=== PATIENT | female | born 1940 | race Caucasian/White ===

== ENCOUNTER → 2017-01-13 | Outpatient (CLI) | payer OTHER ==
[~2017-01-13] MED LIST: ACET-1256 PO; AMOX875T PO; BIOT1CAP4 PO; CALCTAB7 PO; FEBU40TA PO; HYDR25TA4 PO; LORA10CA2 PO; MULT-845 PO; OMEGCAP2 PO; OXYC1TAB3 PO; TRAV0.00 OPB; ZOLP10TA PO
[2017-01-13 13:53] LABS: ESTIMATED AVERAGE GLUCOSE 143 mg/dl; HA1C FLAG Normal (Normal)
[2017-01-13 14:02] LABS: ALT/SGPT 58 U/L (12-78); BLOOD UREA NITROGEN 23 mg/dl (7-18); CALCIUM 9.7 mg/dl (8.5-10.1); CARBON DIOXIDE 30 mmol/L (21-32); CHLORIDE 105 mmol/L (98-107); CHOLESTEROL 187 mg/dl (0-200); CREATININE 0.82 mg/dl (0.60-1.20); GLUCOSE 108 mg/dl (70-99); POTASSIUM 3.6 mmol/L (3.5-5.1); SODIUM 143 mmol/L (136-145); TRIGLYCERIDES 112 mg/dl (0-150); VERY LOW DENSITY LIPOPROT CALC 22 mg/dl
[2017-01-13 14:06] LABS: ALB/GLOB RATIO 1.1 (0.9-2); ALKALINE PHOSPHATASE 50 U/L (45-117); AST/SGOT 24 U/L (15-37); CHOLESTEROL/HDL RATIO 3.8; HDL CHOLESTEROL 49 mg/dl; LDL CHOLESTEROL CALCULATED 116 mg/dl
== END | disposition home or self-care (01) ==
LOC: C.LABMFLN 07:47
PROVIDERS: ATTEND Family Medicine
DX: I10 Essential (primary) hypertension (principal); E11.9 Type 2 diabetes mellitus without complications; E78.5 Hyperlipidemia, unspecified; E55.9 Vitamin D deficiency, unspecified

== ENCOUNTER 2017-04-25 10:12 | Emergency (ER) | payer OTHER ==
[~2017-04-25] VITALS: Ht 154.9 cm; Wt 95.0 kg
[2017-04-25 10:17] VITALS: Ht 154.9 cm; Wt 95.0 kg
[2017-04-25] MEDS ORDERED: MoRPHine SULFATE 4 MG/ML 1 ML CARP\\VIAL IV STA (10:53)
[2017-04-25] MEDS ORDERED: ONDANSETRON INJ 2 MG/ML 2 ML VIAL IV STA (10:53)
[2017-04-25 11:22] LABS: BASO % 0.3 %; BASO ABS # 0.03 K/uL (0-0.2); COMPLETE YES; EOS % 1.3 %; HEMATOCRIT 41.6 % (37-47); IG% 0.4 %; LYMPH % 23.3 %; LYMPH ABS # 2.17 K/uL (1.2-3.4); MEAN CELL VOLUME 92.4 fL (80-100); MEAN CORPUSCULAR HEMOGLOBIN 32.2 pg (25-34); MEAN CORPUSCULAR HGB CONC 34.9 g/dl (32-36); MEAN PLATELET VOLUME 10.3 fL (7.4-10.4); MONO % 11.3 %; NEUT % 63.4 %; PLATELET COUNT 204 K/uL (130-400); WHITE BLOOD COUNT 9.33 K/uL (4.8-10.8)
[2017-04-25 11:23] LABS: URINE APPEARANCE CLEAR (CLEAR); URINE BILIRUBIN NEG (NEG); URINE COLOR YELLOW; URINE NITRITE NEG (NEG); URINE PH 6.5 (4.5-7.5); URINE SPECIFIC GRAVITY 1.017 (1.000-1.030); UROBILINOGEN NEG (NEG)
[2017-04-25 11:28] LABS: MANUAL MICROSCOPIC REQUIRED? NO; REVIEW REQ? NO
[2017-04-25 11:43] LABS: BLOOD UREA NITROGEN 15 mg/dl (7-18); BUN/CREATININE RATIO 17.5 (10-20); CARBON DIOXIDE 27 mmol/L (21-32); CHLORIDE 103 mmol/L (98-107); CREATININE 0.88 mg/dl (0.60-1.20); GLUCOSE 161 mg/dl (70-99); POTASSIUM 3.5 mmol/L (3.5-5.1); SODIUM 138 mmol/L (136-145)
[2017-04-25] MEDS ORDERED: FEBU40TA PO (11:43)
[2017-04-25] MEDS ORDERED: MULT-845 PO (11:43)
[2017-04-25] MEDS ORDERED: OMEGCAP2 PO (11:43)
[2017-04-25] MEDS ORDERED: HYDR25TA4 PO (11:43)
[2017-04-25] MEDS ORDERED: ACET-1256 PO (11:43)
[2017-04-25] MEDS ORDERED: BIOT1CAP4 PO (11:43)
[2017-04-25] MEDS ORDERED: ZOLP10TA PO (11:43)
[2017-04-25] MEDS ORDERED: CALCTAB7 PO (11:43)
[2017-04-25] MEDS ORDERED: TRAV0.00 OPB (11:43)
[2017-04-25] MEDS ORDERED: LORA10CA2 PO (11:43)
[2017-04-25 11:47] LABS: ALKALINE PHOSPHATASE 55 U/L (45-117); ALT/SGPT 42 U/L (12-78); AST/SGOT 17 U/L (15-37)
[2017-04-25] MEDS ORDERED: OPTIRAY 320 IV PRN (13:30)
--- NOTE | 2017-04-25 13:50 | DIAGNOSTIC IMAGING REPORT ---
HEAD CT NONCONTRAST CT DOSE: 537.48 mGy.cm HISTORY: Mental status change left frontal CLARK eval or bleed/mass TECHNIQUE: Multiaxial CT images of the head were performed without the use of intravenous contrast. Comparison: None. Findings: Opacified left maxillary sinus. The calvarium and skull base are intact. The ventricles and sulci are within normal limits. There is no mass, hematoma, midline shift, or acute infarct. Impression: Opacified left maxillary sinus. Otherwise negative CT of the brain Electronically signed by: Bret Fortune M.D. 04/25/2017 1:48 PM Dictated Date/Time: 04/25/2017 1:46 PM
--- NOTE | 2017-04-25 13:53 | DIAGNOSTIC IMAGING REPORT ---
ABDOMEN AND PELVIS CT WITH IV AND ORAL CONTRAST CT DOSE: 1103.74 mGy.cm HISTORY: Pain eval for diver tic TECHNIQUE: Multiaxial CT images of the abdomen and pelvis were performed following the use of intravenous and oral contrast. COMPARISON STUDY: None. FINDINGS: Pleuritic atelectasis left base. Lung bases otherwise are clear. Mild fatty infiltration of liver. Kidneys enhance uniformly. There are negative for hydronephrosis. Pancreas is unremarkable. Moderate wall thickening with pericolonic infiltrative change of the proximal to mid descending colon. No evidence for drainable abscess or collection. The appearance is consistent with acute diverticulitis. Small bowel pattern is nonobstructive. Cecum is unremarkable. The appendix appears to be normal. IMPRESSION: Acute diverticulitis of the proximal to mid descending colon. Moderate pericolonic infiltrative change. No evidence for abscess collection or obstruction. Electronically signed by: Bret Fortune M.D. 04/25/2017 1:51 PM Dictated Date/Time: 04/25/2017 1:48 PM
[2017-04-25] MEDS ORDERED: OXYC1TAB3 PO (14:25)
[2017-04-25] MEDS ORDERED: AMOX875T PO (14:25)
[2017-04-25] MEDS ORDERED: AMOXICILLIN/CLAVULANATE TAB 875 MG TAB PO ONE (14:30)
[2017-04-25 14:47] VITALS: BP 152/78; PULSE 72; TEMP 37.2; O2SAT 95
--- NOTE | 2017-04-25 16:41 | EMERGENCY ROOM VISIT NOTE ---
History Report prepared by Sawyer: Chely Blanchard Under the Supervision of: Dr. Fernando Sheldon M.D. First contact with patient: 10:44 Chief Complaint: ABDOMINAL PAIN Stated Complaint: ABD. PAIN, CLARK, BODY ACHES History of Present Illness The patient is a 76 year old female who presents to the Emergency Room with complaints of left lower quadrant abdominal pain beginning 3 days ago. She states that the pain intensity waxes and wanes. The patient says that she has had abdominal pain like this before but that it was not this bad and that it did not last this long. She reports that moving and eating exacerbates the pain. The patient also complains of a headache with fleeting pain on the left side of her head. She denies diarrhea, fevers, vomiting, rectal bleeding, chest pain, shortness of breath, urinary symptoms, and loss of vision. The patient reports that her last bowel movement was this morning and that she felt light- headed on the toilet and thought she was going to pass out. She also reports that she is diabetic and that her blood sugar was elevated this morning. Source of History: patient Onset: 3 days ago Position: abdomen (LLQ) Symptom Intensity: moderate Quality: other (unable to describe) Timing: waxes/wanes (the intensity waxes and wanes ) Modifying Factors (Worsening): eating, movement Associated Symptoms: + headache (severe, fleeting pain on the left side of her head), No fevers, No chest pain, No SOB, No vomiting, No diarrhea, No urinary symptoms, No weakness, No numbness Note: also denies: rectal bleeding and loss of vision Review of Systems See HPI for pertinent positives & negatives. A total of 10 systems reviewed and were otherwise negative. Past Medical & Surgical Medical Problems: (1) Asthma (2) Bronchitis (3) Diabetes (4) Skin problem Family History Cancer Diabetes mellitus Heart disease Social History Smoking Status: Never Smoker Alcohol Use: none Marital Status: Housing Status: lives with significant other Current/Historical Medications Scheduled Acetaminophen (Tylenol), 1,000 MG PO DAILY Amoxicillin & Pot Clavulanate (Augmentin 875-125 mg), 875 MG PO BID Biotin (Biotin), 1 TAB PO DAILY Calcium Carbonate-Vitamin D W/ (Caltrate 600 Plus), 1 TAB PO DAILY Febuxostat (Uloric), 1 TAB PO DAILY Hydrochlorothiazide (Hctz), 25 MG PO DAILY Multiple Vitamins W/ Minerals (Centrum Silver Adult 50+), 1 TAB PO DAILY Elmore-3 Fatty Acids (Fish Oil), 1 CAP PO DAILY Travoprost (Travatan Z), 1 DROPS OPB HS Zolpidem Tartrate (Ambien), 10 MG PO HS Scheduled PRN Loratadine (Claritin), 10 MG PO DAILY PRN for ALLERGIC REACTION Oxycodone Ir (Roxicodone Ir), 5 MG PO Q4H PRN for Pain Allergies Coded Allergies: Cefuroxime (Verified Allergy, Severe, THROAT CLOSES/TOUNGE SWELLS, 04/25/17 ) Cephalosporins (Verified Allergy, Unknown, 04/25/17) Lactose Intolerance (GI) (Unverified Adverse Reaction, Mild, GI SYMPTOMS, 04/25/17) Adhesives (Unverified Adverse Reaction, Unknown, SKIN IRRITATIONS, 04/25/17 ) Physical Exam Vital Signs Date Time Temp Pulse Resp B/P (MAP) Pulse Ox O2 Delivery O2 Flow Rate FiO2 04/25/17 14:47 37.2 72 18 152/78 95 04/25/17 14:37 72 18 152/78 95 Room Air 04/25/17 12:14 78 18 141/90 96 04/25/17 10:17 37.2 95 16 150/76 96 Room Air Physical Exam Constitutional: Vital signs reviewed. Eyes: Pupils are equal round reactive to light. Conjunctiva are noninjected. ENT: Pharynx is clear without erythema or exudate. Mucous membranes are moist. Neck supple without meningeal signs. Respiratory: Clear to auscultation bilaterally. Breath sounds are equal bilaterally. Cardiovascular: Regular rate and rhythm. No rubs or gallops. GI: Soft, nondistended with tenderness in the left lower quadrant. No guarding. Bowel sounds are present. Musculoskeletal: No peripheral edema. No lower extremity tenderness. No CVA tenderness. Integumentary: No cyanosis. Neurologic: The patient is awake and alert. Cranial nerves II-XII are intact. Motor is 5 out of 5 all extremities. Sensation is intact to light touch all extremities. Normal speech. No pronator drift. Psychiatric: Normal affect. Medical Decision & Procedures ER Provider Diagnostic Interpretation: CT results as stated below per my review and radiologist interpretation. HEAD CT NONCONTRAST CT DOSE: 537.48 mGy.cm HISTORY: Mental status change left frontal CLARK eval or bleed/mass TECHNIQUE: Multiaxial CT images of the head were performed without the use of intravenous contrast. Comparison: None. Findings: Opacified left maxillary sinus. The calvarium and skull base are intact. The ventricles and sulci are within normal limits. There is no mass, hematoma, midline shift, or acute infarct. Impression: Opacified left maxillary sinus. Otherwise negative CT of the brain Electronically signed by: Bret Fortune M.D. 04/25/2017 1:48 PM Dictated Date/Time: 04/25/2017 1:[address] results as stated below per my review and radiologist interpretation. ABDOMEN AND PELVIS CT WITH IV AND ORAL CONTRAST CT DOSE: 1103.74 mGy.cm HISTORY: Pain eval for diver tic TECHNIQUE: Multiaxial CT images of the abdomen and pelvis were performed following the use of intravenous and oral contrast. COMPARISON STUDY: None. FINDINGS: Pleuritic atelectasis left base. Lung bases otherwise are clear. Mild fatty infiltration of liver. Kidneys enhance uniformly. There are negative for hydronephrosis. Pancreas is unremarkable. Moderate wall thickening with pericolonic infiltrative change of the proximal to mid descending colon. No evidence for drainable abscess or collection. The appearance is consistent with acute diverticulitis. Small bowel pattern is nonobstructive. Cecum is unremarkable. The appendix appears to be normal. IMPRESSION: Acute diverticulitis of the proximal to mid descending colon. Moderate pericolonic infiltrative change. No evidence for abscess collection or obstruction. Laboratory Results 04/25/17 11:00 Red Blood Count 4.50, Mean Corpuscular Volume 92.4, Mean Corpuscular Hemoglobin 32.2, Mean Corpuscular Hemoglobin Concent 34.9, Mean Platelet Volume 10.3, Neutrophils (%) (Auto) 63.4, Lymphocytes (%) (Auto) 23.3, Monocytes (%) (Auto) 11.3, Eosinophils (%) (Auto) 1.3, Basophils (%) (Auto) 0.3, Neutrophils # (Auto ) 5.92, Lymphocytes # (Auto) 2.17, Monocytes # (Auto) 1.05, Eosinophils # (Auto ) 0.12, Basophils # (Auto) 0.03 04/25/17 11:00 Test 04/25/17 11:00 04/25/17 11:09 White Blood Count 9.33 K/uL (4.8-10.8) Red Blood Count 4.50 M/uL (4.2-5.4) Hemoglobin 14.5 g/dL (12.0-16.0) Hematocrit 41.6 % (37-47) Mean Corpuscular Volume 92.4 fL (80-100) Mean Corpuscular Hemoglobin 32.2 pg (25-34) Mean Corpuscular Hemoglobin Concent 34.9 g/dl (32-36) Platelet Count 204 K/uL (130-400) Mean Platelet Volume 10.3 fL (7.4-10.4) Neutrophils (%) (Auto) 63.4 % Lymphocytes (%) (Auto) 23.3 % Monocytes (%) (Auto) 11.3 % Eosinophils (%) (Auto) 1.3 % Basophils (%) (Auto) 0.3 % Neutrophils # (Auto) 5.92 K/uL (1.4-6.5) Lymphocytes # (Auto) 2.17 K/uL (1.2-3.4) Monocytes # (Auto) 1.05 K/uL (0.11-0.59) Eosinophils # (Auto) 0.12 K/uL (0-0.5) Basophils # (Auto) 0.03 K/uL (0-0.2) RDW Standard Deviation 45.7 fL (36.4-46.3) RDW Coefficient of Variation 13.5 % (11.5-14.5) Immature Granulocyte % (Auto) 0.4 % Immature Granulocyte # (Auto) 0.04 K/uL (0.00-0.02) Anion Gap 8.0 mmol/L (3-11) Est Creatinine Clear Calc Drug Dose 59.0 ml/min Estimated GFR () 75.0 Estimated GFR (Non- 64.7 BUN/Creatinine Ratio 17.5 (10-20) Calcium Level 10.0 mg/dl (8.5-10.1) Total Bilirubin 0.3 mg/dl (0.2-1) Direct Bilirubin < 0.1 mg/dl (0-0.2) Aspartate Amino Transf (AST/SGOT) 17 U/L (15-37) Alanine Aminotransferase (ALT/SGPT) 42 U/L (12-78) Alkaline Phosphatase 55 U/L (45-117) Total Protein 7.6 gm/dl (6.4-8.2) Albumin 3.5 gm/dl (3.4-5.0) Lipase 132 U/L (73-393) Urine Color YELLOW Urine Appearance CLEAR (CLEAR) Urine pH 6.5 (4.5-7.5) Urine Specific Kendrick 1.017 (1.000-1.030) Urine Protein NEG (NEG) Urine Glucose (UA) NEG (NEG) Urine Ketones NEG (NEG) Urine Occult Blood NEG (NEG) Urine Nitrite NEG (NEG) Urine Bilirubin NEG (NEG) Urine Urobilinogen NEG (NEG) Urine Leukocyte Esterase NEG (NEG) Laboratory results as reviewed by me. Medications Administered Medications (Trade) Dose Ordered Sig/Lubna Route Start Time Stop Time Status Last Admin Dose Admin Amoxicillin/ Clavulanate Potassium (Augmentin Tab) 875 mg NOW ONCE PO 04/25/17 14:30 04/25/17 14:31 DC 04/25/17 14:30 875 MG ED Course 1046: The patient was evaluated in room C6. A complete history and physical exam was performed. 1053: Ordered Ondansetron HCl 4 mg IV, Morphine Sulfate 4 mg IV. 1429: The patient says that she is not allergic to Penicillin and that she has had it before. 1430: Ordered Augmentin Tab 875 mg PO. 1445: Upon reevaluation, the patient appeared to have improvement of her symptoms. I discussed tonight's findings with her. She verbalized agreement of the treatment plan. She was discharged home. Medical Decision This is a 76-year-old female who presents with abdominal pain and headache. Differential diagnosis includes diverticulitis, abscess, perforation, kidney stone, UTI, intracranial mass, intracranial hemorrhage. Blood Pressure Screening: Patient was found to have an elevated blood pressure and was referred to their primary doctor for recheck and further treatment. Medication Reconciliation: I attest that I have personally reviewed the patient' s current medication list. I did evaluate the patient as noted above. She is having fleeting headaches to her left frontal region. She is neurologically intact. She denies any fever. She also complains of left lower quadrant pain and has tenderness in that region. She does have a prior history of diverticulitis. IV access was established. The patient was placed on a continuous traffic monitor specialist. I did order and personally review the patient's urinalysis as described above. I did order and review the patient's blood work as noted in the electronic medical record. Her white blood cell count is not elevated. I did order a CT of the head, abdomen and pelvis. I did review the images myself as well as the radiology report as described above. I did evaluate patient as described above. There is no evidence of acute intracranial abnormality. She does have left maxillary sinus disease. She denies having any sinus symptoms. She does have diverticulitis without abscess or perforation. I did reassess the patient. She is feeling better. I did discuss the test results with the patient. I did recommend staying on a liquid diet for the next few days and to follow closely with her doctor next week. She was given a prescription for Augmentin for 10 days and oxycodone for pain. She was discharged in good condition [place] Drug Monitoring Program Search Results: patient reviewed within database, no issues identified Impression Primary Impression: Acute diverticulitis Additional Impression: Acute headache Scribe Attestation The scribe's documentation has been prepared under my direct and personally reviewed by me in its entirety. I confirm that the note above accurately reflects all work, treatment, procedures, and medical decision making performed by me. Departure Information Dispostion Home / Self-Care Prescriptions Amoxicillin & Pot Clavulanate (Augmentin 875-125 mg) 1 Tab Tab 875 MG PO BID for 10 Days, #20 TAB Prov: Fernando Sheldon M.D. 04/25/17 Oxycodone Ir (Roxicodone Ir) 5 Mg Tab 5 MG PO Q4H Y for Pain, #10 TAB Prov: Fernando Sheldon M.D. 04/25/17 Referrals Pierce Javed M.D. (PCP) Forms HOME CARE DOCUMENTATION FORM, IMPORTANT VISIT INFORMATION Patient Instructions Diverticulitis Dc, Headache Pain, My [facility] Additional Instructions You have been examined and treated today on an emergency basis only. This is not a substitute for, or an effort to provide, complete comprehensive medical care. It is impossible to recognize and treat all injuries or illnesses in a single emergency department visit. It is therefore important that you follow up closely with your physician on Friday. Call as soon as possible for an appointment. Return for worsening symptoms or if you develop fever, vomiting, or any other concerning symptoms. Stay on a liquid diet for the next 3 days. Problem Qualifiers Additional Impression: Acute headache Headache type: unspecified Intractability: not intractable Qualified Codes : R51 - Headache
== END 2017-04-25 14:48 | disposition home or self-care (01) ==
LOC: C.EDB 10:13 → C.EDC 14:48
DX: K57.92 Diverticulitis of intestine, part unspecified, without perforation or abscess without bleeding (principal); R51 Headache; J45.909 Unspecified asthma, uncomplicated; E11.9 Type 2 diabetes mellitus without complications; Z83.3 Family history of diabetes mellitus; Z82.49 Family history of ischemic heart disease and other diseases of the circulatory system

== ENCOUNTER → 2017-05-15 | Outpatient (CLI) | payer OTHER ==
[~2017-05-15] MED LIST changes: -AMOX875T PO
== END | disposition home or self-care (01) ==
LOC: C.LABMFLN 10:31
PROVIDERS: ATTEND Family Medicine
DX: J02.9 Acute pharyngitis, unspecified (principal)

== ENCOUNTER → 2017-05-21 | Outpatient (CLI) | payer OTHER ==
[2017-05-21 13:26] LABS: BASO % 0.2 %; BASO ABS # 0.02 K/uL (0-0.2); COMPLETE YES; EOS % 0.3 %; HEMATOCRIT 41.1 % (37-47); IG% 0.5 %; LYMPH % 29.2 %; MEAN CELL VOLUME 91.3 fL (80-100); MEAN CORPUSCULAR HEMOGLOBIN 31.8 pg (25-34); MEAN CORPUSCULAR HGB CONC 34.8 g/dl (32-36); MEAN PLATELET VOLUME 10.2 fL (7.4-10.4); MONO % 10.8 %; PLATELET COUNT 267 K/uL (130-400); WHITE BLOOD COUNT 10.29 K/uL (4.8-10.8)
[2017-05-21 13:27] LABS: ESTIMATED AVERAGE GLUCOSE 154 mg/dl; HA1C FLAG Normal (Normal)
[2017-05-21 13:54] LABS: ALT/SGPT 40 U/L (12-78); BLOOD UREA NITROGEN 32 mg/dl (7-18); CARBON DIOXIDE 27 mmol/L (21-32); CHLORIDE 105 mmol/L (98-107); CHOLESTEROL 152 mg/dl (0-200); CREATININE 0.85 mg/dl (0.60-1.20); GLUCOSE 119 mg/dl (70-99); POTASSIUM 3.4 mmol/L (3.5-5.1); SODIUM 139 mmol/L (136-145)
[2017-05-21 13:56] LABS: ALB/GLOB RATIO 0.8 (0.9-2); ALKALINE PHOSPHATASE 58 U/L (45-117); AST/SGOT 16 U/L (15-37); CHOLESTEROL/HDL RATIO 2.9; HDL CHOLESTEROL 53 mg/dl; LDL CHOLESTEROL CALCULATED 83 mg/dl; TRIGLYCERIDES 82 mg/dl (0-150); VERY LOW DENSITY LIPOPROT CALC 16 mg/dl
== END | disposition home or self-care (01) ==
LOC: C.LABMFLN 08:34
PROVIDERS: ATTEND Family Medicine
DX: K57.32 Diverticulitis of large intestine without perforation or abscess without bleeding (principal); E11.9 Type 2 diabetes mellitus without complications; E78.5 Hyperlipidemia, unspecified; E55.9 Vitamin D deficiency, unspecified; E86.0 Dehydration

== ENCOUNTER → 2017-05-28 | Outpatient (CLI) | payer OTHER ==
[2017-05-28 13:23] LABS: RATIO 7.1 mcg/mg (0-30.0)
== END | disposition home or self-care (01) ==
LOC: C.LABMFLN 11:25
PROVIDERS: ATTEND Family Medicine
DX: E11.9 Type 2 diabetes mellitus without complications (principal)

== ENCOUNTER → 2017-06-03 | Outpatient (CLI) | payer OTHER | END | disposition home or self-care (01) | LOC: C.LABMFLN 13:32 | PROVIDERS: ATTEND Family Medicine | DX: E87.6 Hypokalemia (principal); M31.6 Other giant cell arteritis ==

== ENCOUNTER → 2017-09-22 | Outpatient (CLI) | payer OTHER ==
[2017-09-22 13:49] LABS: ALT/SGPT 59 U/L (12-78); AST/SGOT 33 U/L (15-37); BLOOD UREA NITROGEN 25 mg/dl (7-18); BUN/CREATININE RATIO 26.3 (10-20); CALCIUM 9.4 mg/dl (8.5-10.1); CARBON DIOXIDE 25 mmol/L (21-32); CHLORIDE 103 mmol/L (98-107); CREATININE 0.96 mg/dl (0.60-1.20); GLUCOSE 116 mg/dl (70-99); POTASSIUM 3.8 mmol/L (3.5-5.1); SODIUM 137 mmol/L (136-145)
[2017-09-22 13:52] LABS: ALB/GLOB RATIO 0.9 (0.9-2); ALKALINE PHOSPHATASE 55 U/L (45-117); CHOLESTEROL 179 mg/dl (0-200); CHOLESTEROL/HDL RATIO 3.4; HDL CHOLESTEROL 52 mg/dl; LDL CHOLESTEROL CALCULATED 103 mg/dl; TRIGLYCERIDES 119 mg/dl (0-150); VERY LOW DENSITY LIPOPROT CALC 24 mg/dl
[2017-09-22 14:02] LABS: ESTIMATED AVERAGE GLUCOSE 128 mg/dl; HA1C FLAG Normal (Normal)
[2017-09-22 18:34] LABS: RATIO 6.3 mcg/mg (0-30.0)
== END | disposition home or self-care (01) ==
LOC: C.LABMFLN 07:54
PROVIDERS: ATTEND Family Medicine
DX: E11.9 Type 2 diabetes mellitus without complications (principal); E87.6 Hypokalemia; I10 Essential (primary) hypertension; R51 Headache; E78.5 Hyperlipidemia, unspecified; E55.9 Vitamin D deficiency, unspecified

== ENCOUNTER → 2017-09-30 | Outpatient (CLI) | payer OTHER ==
[2017-09-30 18:43] LABS: LYME DISEASE AB IGG NEG (NEG); LYME DISEASE AB IGM NEG (NEG)
== END | disposition home or self-care (01) ==
LOC: C.LABMFLN 13:32
PROVIDERS: ATTEND Family Medicine
DX: R20.0 Anesthesia of skin (principal)

== ENCOUNTER → 2017-10-07 | Outpatient (CLI) | payer OTHER ==
--- NOTE | 2017-10-07 15:11 | MAMMOGRAPHY REPORT ---
UNILATERAL RIGHT DIGITAL SCREENING MAMMOGRAM TOMOSYNTHESIS WITH CAD: 10/07/2017 CLINICAL HISTORY: Asymptomatic. Personal history of breast cancer. TECHNIQUE: Right breast tomosynthesis in addition to standard 2D mammography was performed. Current moises singleton was also evaluated with a Computer Aided Detection (CAD) system. COMPARISON: Comparison is made to exams dated: 09/30/2016 mammogram, 09/25/2015 mammogram, 09/19/2014 mammogram, 08/26/2014 mammogram, 09/19/2014 ultrasound, and 08/25/2013 mammogram - [facility]. BREAST COMPOSITION: There are scattered areas of fibroglandular density in the right breast. FINDINGS: The right MLO views are suboptimal due to the inability of the patient to adequately positi on for the views despite 3 attempts. Within this limitation, there are scattered benign-appearing co arse calcifications and rim calcifications in the right breast. Stable nodularity best appreciated o n the CC view. Stable asymmetry in the inferior right breast on the MLO view. No obvious new mass, architectural distortion or cluster of suspicious microcalcifications is seen. IMPRESSION: ACR BI-RADS CATEGORY 1: NEGATIVE There is no mammographic evidence of malignancy. A 1 year screening mammogram is recommended. The pa tient will receive written notification of the results. Approximately 10% of breast cancers are not detected with mammography. A negative mammographic report should not delay biopsy if a clinically suggestive mass is present. Nayana Bright M.D. ay/:10/07/2017 11:01:20 [place] Treater: Raya RYAN(Kathy)(M), [facility] letter sent: Normal 1/2 BI-RADS Code: ACR BI-RADS Category 1: Negative
== END | disposition home or self-care (01) ==
LOC: C.MAMM 10:30
PROVIDERS: ATTEND Family Medicine
DX: Z12.31 Encounter for screening mammogram for malignant neoplasm of breast (principal)

== ENCOUNTER → 2017-10-10 | Outpatient (CLI) | payer OTHER ==
[~2017-10-10] MED LIST changes: +GADAVIST IV PRN
--- NOTE | 2017-10-10 16:55 | DIAGNOSTIC IMAGING REPORT ---
BRAIN COMBO FOR TRIGEMINAL CLINICAL HISTORY: 76 years-old Female presenting with R20.0 Left facial numbness, left-sided headaches, left facial pain and tooth numbness, vision problems all left-sided, no history of stroke, history of breast cancer, history of temporal artery biopsy. TECHNIQUE: Multisequence, multiplanar MR imaging of the brain was performed before and after the administration of intravenous contrast. IV contrast: 9 mL of Gadavist. COMPARISON: Brain MR from [address] head from 2017. FINDINGS: Ventricles and sulci normal in size. Periventricular and subcortical white matter T2/FLAIR hyperintensity, nonspecific but likely indicative of chronic small vessel ischemic change. Allowing for slight motion and pulsation artifact and rotation of 3-D imaging of the brainstem, normal appearance of the trigeminal nerves and Meckel's caves bilaterally. No mass effect or midline shift. No restricted diffusion to suggest acute ischemia. No hemorrhage. No extra-axial fluid collection. T2 skull base flow voids preserved. No abnormal parenchymal enhancement. Bone marrow signal intensity within the calvarium within normal limits. Near-complete opacification of the left maxillary sinus with heterogeneous T1 isointense, centrally T2 hypointense debris. This also demonstrates restricted diffusion. This also demonstrates peripheral hyperenhancement on postcontrast imaging. No gross evidence of invasion into the left orbit or destruction of adjacent tissues. IMPRESSION: 1. No acute intracranial pathology. No abnormal enhancement. 2. No evidence of abnormality of the trigeminal nerves. 3. 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 Electronically signed by: Castillo Mckenzie M.D. 10/10/2017 4:54 PM Dictated Date/Time: 10/10/2017 4:44 PM
== END | disposition home or self-care (01) ==
LOC: C.MRI 14:27
PROVIDERS: ATTEND Family Medicine
DX: R20.0 Anesthesia of skin (principal)

== ENCOUNTER → 2017-11-11 | Outpatient (CLI) | payer OTHER ==
[~2017-11-11] MED LIST changes: -GADAVIST IV PRN; -OXYC1TAB3 PO
[2017-11-11 18:15] LABS: BASO % 0.6 %; BASO ABS # 0.04 K/uL (0-0.2); EOS % 4.1 %; EOS ABS # 0.27 K/uL (0-0.5); HEMATOCRIT 40.8 % (37-47); HEMOGLOBIN 14.1 g/dL (12.0-16.0); IG# 0.03 K/uL (0.00-0.02); LYMPH % 34.6 %; LYMPH ABS # 2.25 K/uL (1.2-3.4); MEAN CELL VOLUME 94.2 fL (80-100); MEAN CORPUSCULAR HEMOGLOBIN 32.6 pg (25-34); MEAN CORPUSCULAR HGB CONC 34.6 g/dl (32-36); MEAN PLATELET VOLUME 11.2 fL (7.4-10.4); MONO % 12.9 %; MONO ABS # 0.84 K/uL (0.11-0.59); NEUT % 47.3 %; NEUT ABS # 3.08 K/uL (1.4-6.5); PLATELET COUNT 221 K/uL (130-400); RED CELL DISTRIBUTION WIDTH CV 13.8 % (11.5-14.5); RED CELL DISTRIBUTION WIDTH SD 47.5 fL (36.4-46.3); WHITE BLOOD COUNT 6.51 K/uL (4.8-10.8)
[2017-11-11 18:22] LABS: CARBON DIOXIDE 31 mmol/L (21-32); CREATININE 0.82 mg/dl (0.60-1.20); POTASSIUM 3.7 mmol/L (3.5-5.1); SODIUM 138 mmol/L (136-145)
[2017-11-11 18:37] LABS: PTT PATIENT 27.1 SECONDS (21.0-31.0)
== END | disposition home or self-care (01) ==
LOC: C.LABMFLN 11:49
PROVIDERS: ATTEND Family Medicine
DX: Z01.812 Encounter for preprocedural laboratory examination (principal); E11.9 Type 2 diabetes mellitus without complications

== ENCOUNTER → 2017-11-12 | Outpatient (CLI) | payer OTHER ==
--- NOTE | 2017-11-12 14:08 | DIAGNOSTIC IMAGING REPORT ---
FUSION CT SINUSES W/O CLINICAL HISTORY: J32.0 Chronic left maxillary sinusitis, headaches. Left facial numbness. COMPARISON STUDY: MRI the brain dated 10/10/2017 FINDINGS: The visualized portions of the intracranial contents are unremarkable in appearance. There is complete opacification of the left maxillary sinus. There are areas of calcification within the sinus. This raises the possibility of a fungal etiology. There are areas of left maxillary sinus wall thickening, a finding indicating a long-standing process. There are bony erosive changes involving the medial wall the left maxilla sinus. The ostiomeatal infundibular portions the left ostiomeatal unit are occluded. There is mild mucosal disease within several left ethmoid air cells. There is trace fluid in the base of the left frontal sinus. The ethmoid notches are protected. The olfactory grooves measure 4 mm in depth bilaterally. The right frontal and ethmoidal recesses appear patent. The left frontal recess is narrowed by soft tissue. The left ethmoidal recess is patent IMPRESSION: 1. CT findings indicative of chronic left maxillary sinusitis. There is calcific debris within the sinus, a finding favoring a fungal etiology. There is left maxilla sinus wall thickening. There bony erosive/destructive changes involving the medial and superior medial weeks of the left maxillary sinus. The ostiomeatal infundibular portions left ostomy unit are occluded 2. Mild mucosal disease within the left ethmoid and frontal sinuses. Electronically signed by: Lenny Briones M.D. 11/12/2017 2:07 PM Dictated Date/Time: 11/12/2017 1:54 PM
== END | disposition home or self-care (01) ==
LOC: C.CTS 13:38
DX: Z01.818 Encounter for other preprocedural examination (principal); J32.0 Chronic maxillary sinusitis

== ENCOUNTER → 2017-12-01 | Day surgery (SDC) | payer OTHER ==
[2017-11-27 10:04] VITALS: Ht 154.9 cm; Wt 90.9 kg
[~2017-12-01] VITALS: Ht 154.9 cm; Wt 90.9 kg
[~2017-12-01] MED LIST changes: -ACET-1256 PO; +ACET650T97 PO; +ATROPINE SULFATE 0.1 MG/ML 5ML SYR IV PRN; -BIOT1CAP4 PO; +BIOT1CAP8 PO; +CALC600T9 PO; -CALCTAB7 PO; +CETI10TA10 PO; +CLINDAMYCIN PHOS 150 MG/ML 2 ML VIAL IV SCH; +DEXAMETHASONE SOD INJ 4 MG/ML VIAL ONE; +EpHEDrine SULFATE INJ 50 MG/ML AMP IV PRN; +EpHEDrine SULFATE INJ 50 MG/ML AMP ONE; +EpINEphrine INJ 1MG/ML AMP 1 MG/ML AMP ONE; +FENTANYL CITRATE INJ 50 MCG/1 ML 2 ML VIAL IV PRN; +FENTANYL CITRATE INJ 50 MCG/1 ML 2 ML VIAL ONE; +GLC/500 PO; +HYDR12.55 PO; -HYDR25TA4 PO; +HYDROCODONE/ACETAMIN 5/325MG TAB PO PRN; +LACTATED RINGER'S 1000ML 1,000 ML IV SCH; +LIDOCAINE 4% MPF SOAK 5 ML = 1 DOSE TOP ONE; +LIDOCAINE HCL 2% 2 ML VIAL (20MG/ML) ONE; +LIDOCAINE/EPINEPHRINE 1% INJ 50 ML VIAL ONE; -LORA10CA2 PO; +MISCCAP80 PO; +ONDANSETRON INJ 2 MG/ML 2 ML VIAL IV PRN; +ONDANSETRON INJ 2 MG/ML 2 ML VIAL ONE; +OXYMETAZOLINE HCL 0.05% NA SPR 15 ML BTL PRN; +OXYMETAZOLINE HCL 0.05% NA SPR 15 ML BTL SCH; +POTA10CA28 PO; +PROPOFOL IV EMULSION 10 MG/ML 20 ML VIAL IV ONE; +SUCCINYLCHOLINE CHLORIDE 20 MG/ML 10 ML VIAL IV ONE; +VNTHFA/IN INH
--- NOTE | 2017-12-01 12:10 | History & Physical Bridge - SC ---
H&P Re-Evaluation Bridge Note: I have examined the patient, reviewed the History & Physical and in the interval since the performance of the History & Physical I have noted the following changes of clinical significance: No changes noted
--- NOTE | 2017-12-01 13:29 | [facility] Operative Report ---
Operative Report Operative Date Dec 01, 2017. Pre-Operative Diagnosis Chronic maxillary sinusitis Post-Operative Diagnosis Same as preop Procedure(s) Performed Image Guided Endoscopic Sinus Surgery, Left Maxillary Antrostomy With Tissue Removal, Complete Ethmoidectomy Surgeon Dr. Chester Drying Equipment Operator Surgeon(s) None Estimated Blood Loss 50 mL Findings 1. SEVERE INFLAMMATION LEFT MAXILLARY AND ETHMOID SINUSES 2. LEFT MAXILLARY SINUS COMPLETELY FILLED WITH LIKELY FUNGAL MATERIAL/SECRETIONS /PURULENCE Specimens Culture - Left maxillary sinus contents for culture and sensitivity and gram stain A: Left maxillary sinus contents Anesthesia Type General I attest to the content of the Intraoperative Record and any orders documented therein. Any exceptions are noted below.
--- NOTE | 2017-12-01 13:33 | Discharge Instructions ---
Discharge Instructions Date of Service Dec 01, 2017. Admission Reason for Admission: Chronic Maxillary Sinusitis Discharge Discharge Diagnosis / Problem: SAME Discharge Goals Goal(s): Therapeutic intervention Activity Recommendations Activity Limitations: as noted below 1. LIGHT ACTIVITY FOR 2 WEEKS 2. NO NOSE BLOWING FOR 2 WEEKS 3. NO DRIVING WHILE ON NORCO . Current Hospital Diet Patient's current hospital diet: Discharge Diet Recommended Diet: Regular Diet Procedures Procedures Performed: Image Guided Endoscopic Sinus Surgery, Left Maxillary Antrostomy With Tissue Removal, Complete Ethmoidectomy Pending Studies Studies pending at discharge: no Laboratory Results Hemoglobin A1c Test 09/22/17 08:02 Range/Units Estimated Average Glucose 128 mg/dl Hemoglobin A1c 6.1 H 4.5-5.6 % Lipid Panel Test 09/22/17 08:02 Range/Units Triglycerides Level 119 0-150 mg/dl Cholesterol Level 179 0-200 mg/dl HDL Cholesterol 52 mg/dl Cholesterol/HDL Ratio 3.4 LDL Cholesterol, Calculated 103 mg/dl Medical Emergencies . Who to Call and When: Medical Emergencies: If at any time you feel your situation is an emergency, please call 911 immediately. . Non-Emergent Contact Non-Emergency issues call your: Surgeon . . "Provider Documentation" section prepared by Felton Chester. . VTE Core Measure Inpt VTE Proph given/why not?: SCD's
--- NOTE | 2017-12-01 14:10 | OPERATIVE REPORT ---
DATE OF OPERATION: 12/01/2017 PREOPERATIVE DIAGNOSIS: Chronic left maxillary and ethmoid sinusitis. POSTOPERATIVE DIAGNOSIS: Chronic left maxillary and ethmoid sinusitis. PROCEDURES: Image guided left-sided endoscopic sinus surgery consisting of: 1. Left maxillary antrostomy with tissue removal. 2. Left complete ethmoidectomy. SURGEON: Dr. Chester. ANESTHESIA: General endotracheal. ESTIMATED BLOOD LOSS: 50 mL. FINDINGS: 1. Severe inflammation of the left maxillary and ethmoid sinuses. 2. Likely fungal debris and purulence completely filling the left maxillary sinus. SPECIMENS: The left maxillary sinus contents for both Gram stain, culture and sensitivity as well as permanent pathological assessment. COMPLICATIONS: None. INDICATIONS FOR THE PROCEDURE: The patient is a 76-year-old female who has had problems with left chronic maxillary sinusitis despite numerous courses of antibiotics and steroids. She does have a history of noninsulin dependent diabetes mellitus. A posttreatment fusion CT scan showed complete opacification of the left maxillary sinus with heterogenous densities consistent with likely chronic fungal infection. She also had ethmoid sinus mucosal thickening, as well as a minimal amount of left frontal sinus mucosal thickening in the inferior aspect. She presents for the above-mentioned procedure on an outpatient elective basis. DESCRIPTION OF PROCEDURE: After informed consent had been obtained from the patient, the patient was wheeled to the operating room and placed on the operating table in the supine position. Monitors were placed. After induction of general endotracheal anesthesia, the patient was prepped in the usual fashion for image guided endoscopic sinus surgery. The [employer] fusion headset was placed over the forehead and was registered, calibrated and used for the entire case. The 0 degree endoscope was used to visualize the left nasal cavity and middle meatus. A freer elevator was used to medialize the left middle turbinate. The uncinate process was bowed out from infection and you could see purulence coming from the maxillary ostium. The uncinate process and middle turbinate were injected with 1% lidocaine with 1:100,000 epinephrine. A lidocaine and epinephrine pledget was then placed in the left middle meatus. The left pledget was removed, and uncinatectomy was performed using a freer elevator and straight Sacha-Cut forceps. The natural ostia of the maxillary sinus was enlarged anteriorly, inferiorly, and posteriorly using backbiting forceps and powered instrumentation. There was polypoid tissue within the maxillary sinus which was removed and sent off for permanent pathological assessment. There was a large amount of purulence and debris within the left maxillary sinus completely filling its contents. Using a combination of curved suction, curettes, and aggressive irrigation with a 60 mL syringe, care was taken to evacuate all of the sinus contents from the maxillary sinus. Some of this purulent material what appeared to be fungal debris was sent off for Gram stain, culture and sensitivity. A complete ethmoidectomy was then performed using powered instrumentation. The sinonasal cavities were irrigated and suctioned. Merogel was placed into the left ethmoid sinus/middle meatus. An orogastric tube was placed and the stomach was suctioned free of air and stomach contents. This marked the end of the case. The patient tolerated the procedure well. There were no apparent complications. The patient was extubated and transferred to recovery room in stable condition. I attest to the content of the Intraoperative Record and any orders documented therein. Any exception s are noted below.
[2017-12-01 14:22] VITALS: TEMP 36.9
--- NOTE | 2017-12-01 14:45 | Anesthesia Progress Nt - [facility] ---
Anesthesia Post Op Note Date & Time Dec 01, 2017 at 14:45 Vital Signs Pain Intensity: 2 Vital Signs Past 12 Hours Date Time Temp Pulse Resp B/P (MAP) Pulse Ox O2 Delivery O2 Flow Rate FiO2 12/01/17 14:22 36.9 97 16 152/78 (102) 95 Room Air 12/01/17 14:12 94 23 12/01/17 14:12 92 23 144/71 96 12/01/17 14:11 93 16 95 12/01/17 14:11 93 16 12/01/17 14:06 96 6 145/75 94 12/01/17 14:06 96 6 12/01/17 14:05 36.7 95 Room Air 12/01/17 14:01 96 10 12/01/17 14:01 96 10 96 12/01/17 14:00 142/71 12/01/17 13:59 97 18 12/01/17 13:59 96 18 95 12/01/17 13:56 139/66 12/01/17 13:54 95 16 100 12/01/17 13:54 95 16 12/01/17 13:50 143/74 12/01/17 13:49 96 11 99 12/01/17 13:49 96 11 12/01/17 13:48 96 4 98 12/01/17 13:48 96 4 12/01/17 13:45 142/67 12/01/17 13:43 96 5 12/01/17 13:43 96 5 98 12/01/17 13:40 162/74 12/01/17 13:38 98 181/89 95 12/01/17 13:38 36.6 99 16 162/94 97 Humidified Oxygen 7 Mask 12/01/17 13:38 98 12/01/17 10:45 37.2 75 18 167/81 (109) 94 Room Air Notes Mental Status: alert / awake / arousable, participated in evaluation Pt Amnestic to Procedure: Yes Nausea / Vomiting: adequately controlled Pain: adequately controlled Airway Patency, RR, SpO2: stable & adequate BP & HR: stable & adequate Hydration State: stable & adequate Anesthetic Complications: no major complications apparent
[2017-12-01 14:55] VITALS: BP 146/76; PULSE 100; O2SAT 95
== END | disposition home or self-care (01) ==
LOC: X.SURG 10:27
DX: J32.0 Chronic maxillary sinusitis (principal); J32.2 Chronic ethmoidal sinusitis; I10 Essential (primary) hypertension; E11.9 Type 2 diabetes mellitus without complications; E66.9 Obesity, unspecified; J45.909 Unspecified asthma, uncomplicated; G47.33 Obstructive sleep apnea (adult) (pediatric); E78.5 Hyperlipidemia, unspecified; Z98.890 Other specified postprocedural states; Z90.10 Acquired absence of unspecified breast and nipple; Z90.710 Acquired absence of both cervix and uterus; Z96.659 Presence of unspecified artificial knee joint; Z80.41 Family history of malignant neoplasm of ovary; Z82.49 Family history of ischemic heart disease and other diseases of the circulatory system; Z82.2 Family history of deafness and hearing loss; Z80.3 Family history of malignant neoplasm of breast

== ENCOUNTER → 2017-12-05 | Outpatient (CLI) | payer OTHER ==
[~2017-12-05] MED LIST changes: -ATROPINE SULFATE 0.1 MG/ML 5ML SYR IV PRN; -CLINDAMYCIN PHOS 150 MG/ML 2 ML VIAL IV SCH; -DEXAMETHASONE SOD INJ 4 MG/ML VIAL ONE; -EpHEDrine SULFATE INJ 50 MG/ML AMP IV PRN; -EpHEDrine SULFATE INJ 50 MG/ML AMP ONE; -EpINEphrine INJ 1MG/ML AMP 1 MG/ML AMP ONE; -FENTANYL CITRATE INJ 50 MCG/1 ML 2 ML VIAL IV PRN; -FENTANYL CITRATE INJ 50 MCG/1 ML 2 ML VIAL ONE; -HYDROCODONE/ACETAMIN 5/325MG TAB PO PRN; -LACTATED RINGER'S 1000ML 1,000 ML IV SCH; -LIDOCAINE 4% MPF SOAK 5 ML = 1 DOSE TOP ONE; -LIDOCAINE HCL 2% 2 ML VIAL (20MG/ML) ONE; -LIDOCAINE/EPINEPHRINE 1% INJ 50 ML VIAL ONE; -ONDANSETRON INJ 2 MG/ML 2 ML VIAL IV PRN; -ONDANSETRON INJ 2 MG/ML 2 ML VIAL ONE; -OXYMETAZOLINE HCL 0.05% NA SPR 15 ML BTL PRN; -OXYMETAZOLINE HCL 0.05% NA SPR 15 ML BTL SCH; -PROPOFOL IV EMULSION 10 MG/ML 20 ML VIAL IV ONE; -SUCCINYLCHOLINE CHLORIDE 20 MG/ML 10 ML VIAL IV ONE
[2017-12-05 13:16] LABS: BLOOD UREA NITROGEN 39 mg/dl (7-18); CREATININE 1.08 mg/dl (0.60-1.20)
== END | disposition home or self-care (01) ==
LOC: C.LABMFLN 09:39
PROVIDERS: ATTEND Family Medicine
DX: E11.9 Type 2 diabetes mellitus without complications (principal)

== ENCOUNTER → 2018-01-29 | Outpatient (CLI) | payer OTHER ==
[2018-01-29 13:35] LABS: ALBUMIN 3.8 gm/dl (3.4-5.0); ALT/SGPT 65 U/L (12-78); AST/SGOT 30 U/L (15-37); BLOOD UREA NITROGEN 22 mg/dl (7-18); CALCIUM 9.7 mg/dl (8.5-10.1); CARBON DIOXIDE 26 mmol/L (21-32); CHOLESTEROL 174 mg/dl (0-200); CREATININE 0.84 mg/dl (0.60-1.20); GLUCOSE 119 mg/dl (70-99); POTASSIUM 3.7 mmol/L (3.5-5.1); SODIUM 140 mmol/L (136-145)
[2018-01-29 13:39] LABS: ALKALINE PHOSPHATASE 52 U/L (45-117); LDL CHOLESTEROL CALCULATED 101 mg/dl; TOTAL PROTEIN 7.3 gm/dl (6.4-8.2)
[2018-01-29 13:41] LABS: HEMOGLOBIN A1C 6.5 % (4.5-5.6)
== END | disposition home or self-care (01) ==
LOC: C.LABMFLN 09:13
PROVIDERS: ATTEND Family Medicine
DX: I10 Essential (primary) hypertension (principal); E11.9 Type 2 diabetes mellitus without complications; E78.5 Hyperlipidemia, unspecified; E55.9 Vitamin D deficiency, unspecified

== ENCOUNTER 2021-01-08 22:09 | Inpatient (IN) ==
[2021-01-08] MEDS ORDERED: ONDANSETRON INJ 2 MG/ML 2 ML VIAL IV STA (22:31)
[2021-01-08] MEDS ORDERED: FAMOTIDINE 20MG/5ML IV PUSH IV STA (22:31)
[2021-01-08] MEDS ORDERED: SODIUM CHLORIDE 0.9% 500 ML IV STA (22:31)
[2021-01-08 22:52] LABS: Basophils # (auto) 0.02 K/uL (0-0.2); Basophils % (auto) 0.2 %; Eosinophils # (auto) 0.31 K/uL (0-0.5); Eosinophils % (auto) 2.9 %; Hematocrit (blood only) 40.1 % (37-47); Hemoglobin 14.1 g/dL (12.0-16.0); Immature Granulocytes # (auto) 0.03 K/uL (0.00-0.02); Immature Granulocytes % (auto) 0.3 %; Lymphocytes # (auto) 1.74 K/uL (1.2-3.4); Mean Corpuscular Hemoglobin 32.2 pg (25-34); Mean Corpuscular Hgb Conc 35.2 g/dL (32-36); Mean Corpuscular Volume 91.6 fL (80-100); Mean Platelet Volume 9.8 fL (7.4-10.4); Monocytes # (auto) 1.08 K/uL (0.11-0.59); Monocytes % (auto) 9.9 %; Neutrophils # (auto) 7.69 K/uL (1.4-6.5); Neutrophils % (auto) 70.7 %; Platelet Count 227 K/uL (130-400); RDW Coefficient of Variation 12.9 % (11.5-14.5); RDW Standard Deviation 43.4 fL (36.4-46.3); Red Blood Count 4.38 M/uL (4.2-5.4); White Blood Count 10.87 K/uL (4.8-10.8)
--- NOTE | 2021-01-08 23:04 | Emergency Department Note ---
History of Present Illness General Chief complaint: Abdominal Pain Stated complaint: ABD PAIN, VOMITING Time Seen by Provider: 01/08/21 22:16 History of Present Illness This 80-year-old currently on Cipro and Flagyl for diverticulitis presents to the ER complaining of nausea vomiting diarrhea and upset stomach Location: Abdomen Quality: Nauseated Severity: Moderate Duration: Today Timing: Today Context: Symptoms got worse and patient came in Modifying factors: better with nothing; worse with antibiotics Patient states her diverticulitis pain is feeling better but now she has been having nonstop vomiting and diarrhea. It is dark and smelly in nature. No history of C. difficile. Patient denies chest pain, dyspnea, fevers, urinary symptoms. She states she feels quite weak and dehydrated. Home Medications Medication Instructions Recorded Confirmed Type Saccharomyces boulardii 250 mg 250 mg PO DAILY #90 cap 06/17/19 01/08/21 Rx capsule biotin 2,500 mcg capsule 2,500 mcg PO DAILY #90 cap 06/17/19 01/08/21 Rx fexofenadine 180 mg tablet 180 mg PO DAILY #90 tab 06/17/19 01/08/21 Rx krill 1 cap PO DAILY #90 cap 06/17/19 01/08/21 Rx xqv-mf9-jzk-lhl-jr6-njm-astax 1,500 mg-165 mg-67.5 mg capsule hydrochlorothiazide 12.5 mg tablet 12.5 mg PO DAILY #90 tab 01/31/20 01/08/21 Rx febuxostat 40 mg tablet 40 mg PO DAILY #90 tab 06/09/20 01/08/21 Rx cholecalciferol (vitamin D3) 25 2,000 unit PO DAILY #30 cap 08/01/20 01/08/21 Rx mcg (1,000 unit) capsule clobetasol 0.05 % scalp solution 1 applic TOPICAL DAILY PRN #50 ml 08/24/20 01/08/21 Rx hydrocortisone-pramoxine 1 %-1 % 1 applic TOPICAL BID PRN #57 g 08/24/20 01/08/21 Rx topical cream nystatin-triamcinolone 100,000 1 applic TOPICAL BID PRN #60 gm 08/24/20 01/08/21 Rx unit/gram-0.1 % topical ointment peg 400-propylene glycol (PF) 0.4 1 drp OPHTHALMIC (EYE) QID #30 ea 08/24/20 01/08/21 Rx %-0.3 % eye drops in a dropperette zolpidem 10 mg tablet 10 mg PO HS PRN #90 tab 09/26/20 01/08/21 Rx metformin 500 mg tablet 500 mg PO BID #180 tab 11/14/20 01/08/21 Rx potassium chloride 10 mEq 10 meq PO BID #180 tab 12/22/20 01/08/21 Rx tablet,extended release acetaminophen [Tylenol Arthritis 650 - 1,300 mg PO Q12H PRN 01/02/21 01/08/21 History Pain] ciprofloxacin HCl [Cipro] 500 mg PO BID 10 Days #20 tab 01/02/21 01/08/21 Rx metronidazole [Flagyl] 500 mg PO TID #30 tab 01/02/21 01/08/21 Rx rqvoihiqzbgm-qbjinqyn-crpuvt 1 tab PO DAILY 01/02/21 01/08/21 History [Centrum Silver] vit C,J-Kx-bquno-lutein-zeaxan 1 tab PO BID 01/02/21 01/08/21 History [PreserVision AREDS-2] Allergies Allergy/AdvReac Type Severity Reaction Status Date / Time cefuroxime Allergy Severe THROAT Verified 01/08/21 22:54 CLOSES/TOUNGE SWELLS clotrimazole [From Lotrimin] Allergy Unknown Unknown Verified 01/08/21 22:54 lactose AdvReac Intermediate GI SYMPTOMS Verified 01/08/21 22:54 adhesive AdvReac Mild SKIN Verified 01/08/21 22:54 IRRITATIONS Past Med/Surg History Medical History Acute diverticulitis Asthma Breast cancer dx 54 years old, mastectomy and tram flap Diverticulitis Dyslipidemia Elevated liver function tests Hepatitis probably A as a child Left hand pain Leukocytosis Type 2 diabetes mellitus Vitamin D deficiency Surgical History H/O breast reconstruction H/O sinus surgery History of colonoscopy History of dilation and curettage History of hysterectomy unilateral ovarian removal, (?R)--for a large cyst History of knee replacement bilateral History of mastectomy left breast Family History Sister Breast cancer Father Coronary heart disease Heart disease Hypertension Melanoma Mother Ovarian cancer age 93, diagnosed advanced stage Social History Smoking Status: Never smoker Second Hand Exposure: No; Hx Alcohol Use: No Hx Substance Use: No Preferred Language: [place] Communication Ability: Effective Wine Master Required: No marital status: Current Living Situation: Spouse current occupational status: retired Feels Safe at Home: Yes Seatbelt Use: always Review of Systems A total of 10 systems reviewed and were otherwise negative Physical Exam Vital Signs Vital Signs - 24 hr 01/08/21 22:11 01/08/21 22:40 01/08/21 23:00 Temperature 36.4 C L Temperature Source Temporal Artery Scan Pulse Rate 96 H 85 Pulse Rate from SpO2 Sensor 84 Pulse Rhythm Regular Pulse Strength Normal Respiratory Rate 18 18 Respiratory Effort / Characteristics Non-Labored Respiratory Depth Normal Respiratory Pattern Regular Blood Pressure 177/105 H Blood Pressure Mean 129 Blood Pressure Position Sitting Pulse Oximetry 98 97 98 Oxygen Delivery Method Room Air Room Air Sepsis Recent Fever Within 48 Hours No Sepsis New/Unexplained Change in Mental Status No Sepsis Action Taken by Nursing No Action Required 01/08/21 23:35 01/08/21 23:36 01/08/21 23:37 Temperature Temperature Source Pulse Rate 89 84 86 Pulse Rate from SpO2 Sensor 75 86 85 Pulse Rhythm Pulse Strength Respiratory Rate 15 22 22 Respiratory Effort / Characteristics Respiratory Depth Respiratory Pattern Blood Pressure 166/72 H Blood Pressure Mean 103 Blood Pressure Position Pulse Oximetry 99 99 99 Oxygen Delivery Method Sepsis Recent Fever Within 48 Hours Sepsis New/Unexplained Change in Mental Status Sepsis Action Taken by Nursing 01/09/21 00:06 01/09/21 00:10 01/09/21 00:30 Temperature Temperature Source Pulse Rate 90 92 H 86 Pulse Rate from SpO2 Sensor 92 H 86 Pulse Rhythm Pulse Strength Respiratory Rate 15 19 21 Respiratory Effort / Characteristics Respiratory Depth Respiratory Pattern Blood Pressure 157/74 H 158/100 H Blood Pressure Mean 101 119 Blood Pressure Position Pulse Oximetry 97 97 Oxygen Delivery Method Sepsis Recent Fever Within 48 Hours Sepsis New/Unexplained Change in Mental Status Sepsis Action Taken by Nursing VITALS: Vitals are noted on the nurse's note and reviewed by myself. Vital si gns stable. GENERAL: Pleasant female dehydrated appearing, in no acute distress, nondiaphoretic, well-developed well-nourished. SKIN: Capillary reflex less than 2 seconds. HEENT: Normocephalic. PERRLA. EOMI. Nares patent. Mucous membranes mildly dry neck is supple without nuchal rigidity. HEART: Regular rate and rhythm LUNGS: Clear to auscultation bilaterally without wheezes, rales or rhonchi. No retractions or accessory muscle use. ABDOMEN: Positive bowel sounds x 4. Normal tympanic percussion. Soft, mild diffuse tenderness, without masses or organomegaly. Thompson sign negative. No gu arding or rebound tenderness. No CVA tenderness Rectal exam: Brown stool guaiac negative. Repairer Maintenance Building present MUSCULOSKELETAL: No gross musculoskeletal defects. NEURO: Patient was alert and oriented to person place and time. No focal neurological deficits. Course Administered Medications Discontinued Medications Famotidine (Famotidine 20mg/5ml Iv Push) 20 mg IV ONE STA Stop: 01/08/21 22:32 Last Admin: 01/08/21 22:49 Dose: 20 mg Documented by: [id number] Sodium Chloride (Nss) 500 mls @ 999 mls/hr IV .Q31M STA Stop: 01/08/21 23:01 Last Infusion: 01/08/21 23:10 Dose: 0 mls/hr Documented by: [id number] Admin: 01/08/21 22:38 Dose: 999 mls/hr Documented by: [id number] Sodium Chloride (Nss 1000ml) 500 mls @ 999 mls/hr IV .Q31M ONE Stop: 01/09/21 00:15 Last Admin: 01/09/21 00:10 Dose: 999 mls/hr Documented by: [id number] Piperacillin Sod/Tazobactam Sod (Zosyn) 4.5 gm in 120 mls @ 240 mls/hr IV NOW ONE Stop: 01/09/21 00:24 Last Admin: 01/09/21 00:10 Dose: 240 mls/hr Documented by: [id number] Ioversol (Ioversol 100ml) 94 ml IV ONCE ONE Stop: 01/08/21 23:27 Last Admin: 01/08/21 23:27 Dose: 94 ml Documented by: [id number] Ondansetron HCl (Ondansetron Inj 2 Mg/Ml 2 Ml Vial) 4 mg IV NOW STA Stop: 01/08/21 22:32 Last Admin: 01/08/21 22:49 Dose: 4 mg Documented by: [id number] Medical Decision Making Medical Records Attestation: I reviewed the patient's medical records. Home Medications Current Medication List: was personally reviewed by me Laboratory Data Attestation: I reviewed the patient's lab results. Result diagrams: 01/08/21 22:43 01/08/21 22:44 Lab Results 01/08/21 01/08/21 01/08/21 Range/Units 22:43 22:44 23:40 WBC 10.87 H (4.8-10.8) K/uL RBC 4.38 (4.2-5.4) M/uL Hgb 14.1 (12.0-16.0) g/dL Hct 40.1 (37-47) % MCV 91.6 (80-100) fL MCH 32.2 (25-34) pg MCHC 35.2 (32-36) g/dL RDW Std Deviation 43.4 (36.4-46.3) fL RDW Coeff of Gordon 12.9 (11.5-14.5) % Plt Count 227 (130-400) K/uL MPV 9.8 (7.4-10.4) fL Immature Gran % (Auto) 0.3 % Neut % (Auto) 70.7 % Lymph % (Auto) 16.0 % Cannon % (Auto) 9.9 % Eos % (Auto) 2.9 % Baso % (Auto) 0.2 % Neut # (Auto) 7.69 H (1.4-6.5) K/uL Lymph # (Auto) 1.74 (1.2-3.4) K/uL Cannon # (Auto) 1.08 H (0.11-0.59) K/uL Eos # (Auto) 0.31 (0-0.5) K/uL Baso # (Auto) 0.02 (0-0.2) K/uL Immature Gran # (Auto) 0.03 H (0.00-0.02) K/uL Sodium 134 L (136-145) mmol/L Potassium 3.7 (3.5-5.1) mmol/L Chloride 102 (98-107) mmol/L Carbon Dioxide 24 (21-32) mmol/L Anion Gap 8.0 (3-11) BUN 16 (7-18) mg/dl Creatinine 0.92 (0.6-1.2) mg/dl Est Cr Clr Drug Dosing 51.3 ml/min Est GFR ( Amer) 69.1 Est GFR (Non-Af Amer) 59.6 BUN/Creatinine Ratio 17.6 (10-20) Glucose 234 H (70-99) mg/dl Calcium 9.8 (8.5-10.1) mg/dl Magnesium 1.9 (1.8-2.4) mg/dl Total Bilirubin 0.3 (0.2-1) mg/dl AST 32 (15-37) U/L ALT 60 (12-78) U/L Alkaline Phosphatase 68 (45-117) U/L Troponin I < 0.015 (0-0.045) ng/ml Total Protein 8.0 (6.4-8.2) gm/dl Albumin 3.6 (3.4-5.0) gm/dl Globulin 4.4 H (2.5-4.0) gm/dl Albumin/Globulin Ratio 0.8 L (0.9-2) Lipase 7433 H (73-393) U/L Urine Color Yellow Urine Appearance Clear (Clear) Urine pH 5.0 (4.5-7.5) Ur Specific [place] 1.021 (1.000-1.030) Urine Protein Negative (Negative) Urine Glucose (UA) Negative (Negative) Urine Ketones Negative (Negative) Urine Blood Negative (Negative) Urine Nitrite Negative (Negative) Urine Bilirubin Negative (Negative) Urine Urobilinogen Negative (Negative) Ur Leukocyte Esterase Trace H (Negative) Urine WBC (Auto) 1-5 (0-5) /hpf Urine RBC (Auto) 0-4 (0-4) /hpf U Hyaline Cast (Auto) 1-5 (0-5) /lpf U Epithel Cells (Auto) >30 H (0-5) /lpf Urine Bacteria (Auto) Negative (Negative) COVID-19 Eval Order 01/09/21 Range/Units 00:30 WBC (4.8-10.8) K/uL RBC (4.2-5.4) M/uL Hgb (12.0-16.0) g/dL Hct (37-47) % MCV (80-100) fL MCH (25-34) pg MCHC (32-36) g/dL RDW Std Deviation (36.4-46.3) fL RDW Coeff of Gordon (11.5-14.5) % Plt Count (130-400) K/uL MPV (7.4-10.4) fL Immature Gran % (Auto) % Neut % (Auto) % Lymph % (Auto) % Cannon % (Auto) % Eos % (Auto) % Baso % (Auto) % Neut # (Auto) (1.4-6.5) K/uL Lymph # (Auto) (1.2-3.4) K/uL Cannon # (Auto) (0.11-0.59) K/uL Eos # (Auto) (0-0.5) K/uL Baso # (Auto) (0-0.2) K/uL Immature Gran # (Auto) (0.00-0.02) K/uL Sodium (136-145) mmol/L Potassium (3.5-5.1) mmol/L Chloride (98-107) mmol/L Carbon Dioxide (21-32) mmol/L Anion Gap (3-11) BUN (7-18) mg/dl Creatinine (0.6-1.2) mg/dl Est Cr Clr Drug Dosing ml/min Est GFR ( Amer) Est GFR (Non-Af Amer) BUN/Creatinine Ratio (10-20) Glucose (70-99) mg/dl Calcium (8.5-10.1) mg/dl Magnesium (1.8-2.4) mg/dl Total Bilirubin (0.2-1) mg/dl AST (15-37) U/L ALT (12-78) U/L Alkaline Phosphatase (45-117) U/L Troponin I (0-0.045) ng/ml Total Protein (6.4-8.2) gm/dl Albumin (3.4-5.0) gm/dl Globulin (2.5-4.0) gm/dl Albumin/Globulin Ratio (0.9-2) Lipase (73-393) U/L Urine Color Urine Appearance (Clear) Urine pH (4.5-7.5) Ur Specific [place] (1.000-1.030) Urine Protein (Negative) Urine Glucose (UA) (Negative) Urine Ketones (Negative) Urine Blood (Negative) Urine Nitrite (Negative) Urine Bilirubin (Negative) Urine Urobilinogen (Negative) Ur Leukocyte Esterase (Negative) Urine WBC (Auto) (0-5) /hpf Urine RBC (Auto) (0-4) /hpf U Hyaline Cast (Auto) (0-5) /lpf U Epithel Cells (Auto) (0-5) /lpf Urine Bacteria (Auto) (Negative) COVID-19 Eval Order Covid19 IDNow [facility] Imaging Data Attestation: I personally reviewed and interpreted this imaging study as follows: MDM Narrative Prior records/ancillary studies reviewed. Triage Nursing notes reviewed. Additional history obtained from the family. The patient's history was concerning for nausea, vomiting, diarrhea, and abdominal pain. Differential diagnosis: Etiologies such as gastroenteritis, food borne illness, infections, appendicitis, diverticulitis, inflammatory bowel disease, obstruction, GI bleed, biliary pathology, as well as others were entertained. Physical examination findings: As above. Abdominal examination revealed mild tenderness. Vital signs reviewed and revealed hypertensive. ER treatment provided: IV hydration 1 L NSS. Zofran, Pepcid, Zosyn On reassessment the patient felt better. Patient was tolerating p.o. intake. Diagnostics interpretation by me: EKG ordered for upper abdominal pain EKG: Normal sinus, occasional PVC, no acute ST-T wave changes. Impression jono l sinus rhythm with occasional PVC interpreted by myself I think arrhythmia is unlikely. EKG shows normal sinus rhythm with no interval abnormalities such as QT prolongation or WPW. There are no findings to suggest Brugada syndrome. Cardiac monitoring in the emergency department reveals no tachycardic or bradycardic dysrhythmia. Hypertrophic cardiomyopathy was considered but there are no clear historical elements pointing toward this. EKG is not suggestive. The QRS voltage is not extremely large and there are no suggestive Q waves. The labs revealed elevated lipase, leukocytosis Negative urine Imaging studies: CT ABDOMEN & PELVIS With Contrast: Comparison 01/02/21. Diffuse pain pancreatic stranding, suggesting acute pancreatitis. No dilatation of the main pancreatic duct. No peripancreatic fluid collection. Patent splenic and portal veins. No evidence for pancreatic necrosis. No calcified gallstones. No biliary dilatation. No dilated bowel. The appendix is not identified. Duodenal diverticulum. Colonic diverticulosis. Mild acute distal descending colon diverticulitis, improved since the previous exam. No diverticular abscess. Hysterectomy. Radiologist: Pancho Murphy M.D. Consultation: A consultation was placed with the hospitalist, Dr. Ghosh. The case was discussed and diagnostics were reviewed. The patient was evaluated in the ER for further treatment. This appears to be consistent with pancreatitis and improving diverticulitis. Patient was started on antibiotics. She was unable to give a stool sample. She was hydrated as above. She is agreeable treatment plan of admission. Medicine was consulted. By the evaluation outlined above emergent etiologies such as appendicitis, obstruction, cardiac sources, mesenteric ischemia, aortic pathology, inflammatory bowel disease, renal colic, PUD, biliary pathology, UTI, as well as others were deemed relatively unlikely. The pt informed about the findings as listed above. All questions were answered and pleased with the treatment. The chart was completed utilizing [employer] Speech voice recognition software. Grammatical errors, random word insertions, pronoun errors, and incomplete sentences are an occassional consequence of this system due to software limitations, ambient noise, and hardware issues. Any formal questions or concerns about the content, text, or information contained within the body of this dictation should be directly addressed to the physician research assistant for clarification. Impression & Plan Acute pancreatitis, Diverticulitis, Nausea & vomiting, Acute diarrhea Discharge Plan Visit Data Chief Complaint: Abdominal Pain Stated Complaint: ABD PAIN, VOMITING ED Provider: Zac Lewis ED Midlevel Provider: Varsha Sabillon Discharge Problem: Acute pancreatitis, Diverticulitis, Nausea & vomiting, Acute diarrhea Patient Disposition: Admitted As Inpatient Condition: Fair Forms Stand Alone Forms: Count Includes [facility] Prescriptions Prescriptions: No Action hydrochlorothiazide 12.5 mg tablet 12.5 mg PO DAILY Qty: 90 RF: 3 febuxostat 40 mg tablet 40 mg PO DAILY Qty: 90 RF: 3 potassium chloride 10 mEq tablet extended release 10 meq PO BID Qty: 180 RF: 3 Systane (PF) 0.4-0.3 % dropperette 1 drp ophthalmic (eye) QID Qty: 30 RF: 0 clobetasol 0.05 % solution 1 applic topical DAILY PRN (Reason: itching) Qty: 50 RF: 6 nystatin-triamcinolone 100,000-0.1 unit/gram-% ointment 1 applic topical BID PRN (Reason: skin irritation) Qty: 60 RF: 3 Pramosone 1-1 % cream 1 applic topical BID PRN (Reason: skin irritation) Qty: 57 RF: 5 zolpidem 10 mg tablet 10 mg PO HS PRN (Reason: sleep) Qty: 90 RF: 1 metformin 500 mg tablet 500 mg PO BID Qty: 180 RF: 3 biotin 2,500 mcg capsule 2,500 mcg PO DAILY Qty: 90 RF: 3 fexofenadine 180 mg tablet 180 mg PO DAILY Qty: 90 RF: 3 Krill Oil ([place] 3 and 6) 1,500-165-67.5 mg capsule 1 cap PO DAILY Qty: 90 RF: 3 Saccharomyces boulardii 250 mg capsule 250 mg PO DAILY Qty: 90 RF: 3 cholecalciferol (vitamin D3) [Vitamin D3] 25 mcg (1,000 unit) capsule 2,000 unit PO DAILY Qty: 30 RF: 0 acetaminophen [Tylenol Arthritis Pain] 650 mg Tablet Extended Release 650 - 1,300 mg PO Q12H PRN (Reason: Pain) RF: 0 Centrum Silver Tablet 1 tab PO DAILY RF: 0 PreserVision AREDS-2 250-90-40-1 mg Capsule 1 tab PO BID RF: 0 ciprofloxacin HCl [Cipro] 500 mg tablet 500 mg PO BID 10 Days Qty: 20 RF: 0 metronidazole [Flagyl] 500 mg tablet 500 mg PO TID Qty: 30 RF: 0 Referrals Referrals: Pierce Javed MD [Primary Care Provider] - Discharge Problem: Acute pancreatitis Qualifiers: Pancreatitis type: unspecified pancreatitis type Acute pancreatitis complication: unspecified Qualified Code(s): K85.90 - Acute pancreatitis without necrosis or infection, unspecified
[2021-01-08 23:10] LABS: Alanine Aminotransferase 60 U/L (12-78); Albumin Level 3.6 gm/dl (3.4-5.0); Aspartate Aminotransferase 32 U/L (15-37); BUN Creatinine Ratio 17.6 (10-20); Blood Urea Nitrogen 16 mg/dl (7-18); Calcium 9.8 mg/dl (8.5-10.1); Carbon Dioxide 24 mmol/L (21-32); Chloride 102 mmol/L (98-107); Creatinine Clr Calc Pharmacy 51.3 ml/min; Est GFR (African American) 69.1; Est GFR (Non-African American) 59.6; Glucose 234 mg/dl (70-99); Magnesium 1.9 mg/dl (1.8-2.4); Potassium 3.7 mmol/L (3.5-5.1); Sodium 134 mmol/L (136-145)
[2021-01-08 23:14] LABS: Albumin Globulin Ratio 0.8 (0.9-2); Alkaline Phosphatase 68 U/L (45-117); Bilirubin,Total 0.3 mg/dl (0.2-1); Globulin 4.4 gm/dl (2.5-4.0); Lipase 7433 U/L (73-393); Troponin I < 0.015 ng/ml (0-0.045)
[2021-01-08] MEDS ORDERED: OPTIRAY 320 100ml IV ONE (23:26)
[2021-01-08] MEDS ORDERED: SODIUM CHLORIDE 0.9% 1000ML 500 ML IV ONE (23:45)
[2021-01-08] MEDS ORDERED: PIPERACILL/TAZOBAC CONSULT ACTIVE PRN (23:55)
[2021-01-08] MEDS ORDERED: PIPERACILLIN/TAZOBACTAM 4.5 GM/120 ML BAG IV ONE (23:55)
[2021-01-09 00:13] LABS: Appearance Urine Clear (Clear); Bacteria Urine Automated Negative (Negative); Bilirubin Urine Negative (Negative); Blood Urine Negative (Negative); Color Urine Yellow; Epithelial Cell Urine Auto >30 /lpf (0-5); Glucose Urine UA Negative (Negative); Ketones Urine Negative (Negative); Leukocyte Esterase Urine Trace (Negative); Nitrite Urine Negative (Negative); Protein Urine Negative (Negative); RBC Urine Automated 0-4 /hpf (0-4); Specific Gravity Urine 1.021 (1.000-1.030); Urobilinogen Urine Negative (Negative)
--- NOTE | 2021-01-09 00:36 | Emergency Department Note ---
ED Visit Note The patient was seen and examined with Elisabeth Sabillon PA-C. I agree with the history, physical and findings. Please see the note for disposition and details. Patient will be admitted for pancreatitis. . : Acute pancreatitis Qualifiers: Pancreatitis type: unspecified pancreatitis type Acute pancreatitis complication: unspecified Qualified Code(s): K85.90 - Acute pancreatitis without necrosis or infection, unspecified
--- NOTE | 2021-01-09 00:45 | History & Physical Report ---
Date of Service January 09, 2021 Assessment & Plan (1) Acute pancreatitis: Teresa Hays is a 80-year-old female with past medical history significant for type 2 diabetes, hypertriglyceridemia, recent diverticulitis, chronic sinusitis/allergic fungal sinus infection; presented to the ER earlier today for concerns of returning abdominal pain over the last 2 days with inability to tolerate food or water. Acute pancreatitis: -Lipase on admission 7433 -CT abdomen pelvis on admission demonstrating peripancreatic stranding without signs of dilatation of pancreatic duct, without signs of calcified gallstones within maintained gallbladder -NSS@200 mL/h, will limit to 3 L rehydration -N.p.o. at this time, with sips and chips advance as tolerating oral intake -Continue to monitor for signs of improvement Diverticulitis: -Diverticulitis previously noted on CT from 01/02 at that time was started on Cipro Flagyl and discharged from ER -CT on admission demonstrating improvement over last week -Given concerns of potential contribution of ciprofloxacin/Flagyl towards pancreatitis will hold at this time -Received approximately 7 days of Cipro Flagyl, however concerned that patient was unable to maintain adequate oral intake over the last 2 days -Transition antibiotic coverage to Zosyn at this time, would require 3 additional days for theoretic completion of diverticulitis treatment Type 2 diabetes: -BSG's on admission in the 200s -Patient has not been taking home oral regimen while nauseous/with diarrhea over the last 2 days -Hold home oral regimen while inpatient -BSGs ACHS, with sliding scale insulin coverage, will hold on basal until determination of total insulin requirements to maintain appropriate glycemic index Chronic sinusitis: -Was being seen and evaluated by ENT as outpatient with planned surgical intervention for fungal sinus infection -In preparation of this was scheduled to have CT sinuses on 01/09 -CT sinuses ordered Diet: N.p.o. with sips, advance as tolerated with improvement CODE STATUS: DNR/DNI (2) Diverticulitis: (3) Type 2 diabetes mellitus: History of Present Illness Chief Complaint: Abdominal pain Primary Care Provider: Pierce Jvaed MD Teresa Hays is a 80-year-old female with past medical history significant for type 2 diabetes, hypertriglyceridemia, recent diverticulitis, chronic sinusitis/allergic fungal sinus infection; presented to the ER earlier today for concerns of returning abdominal pain over the last 2 days with inability to tolerate food or water. Of note patient was recently in the emergency department approximately 1 week ago, at that time she was having lower abdominal pain and had a CT scan that demonstrated concerns for diverticulitis, she was subsequently stabilized and discharged home on Cipro/Flagyl to be taken over the next 10 days. Over the following 5 days following this ER visit, patient continued to have improvement in her left lower quadrant pain; however over the last 2 days patient noticed some upper abdominal discomfort and decreasing ability to tolerate food and water. Prior to presentation patient had persistent feelings of nausea/vomiting, and admits to not taking some of her medications but believes she was taking the antibiotics over the last 2 days. Still has some residual left lower abdomen pain however she feels like this is greatly improved over the last week, and the vast majority of her the discomfort that she is feeling at this time is around her upper stomach. Has noticed that over the last couple days has had difficulty with bowel movements, but initially attributed this that she was unable to eat or drink much that this would continue to get better. Otherwise generally feeling well, besides feeling disappointed as she was supposed to have her CT ever sinuses on 01/09 in preparation for surgery with ENT and correction of her chronic sinusitis. Allergies Allergy/AdvReac Type Severity Reaction Status Date / Time cefuroxime Allergy Severe THROAT Verified 01/08/21 22:54 CLOSES/TOUNGE SWELLS clotrimazole [From Lotrimin] Allergy Unknown Unknown Verified 01/08/21 22:54 lactose AdvReac Intermediate GI SYMPTOMS Verified 01/08/21 22:54 adhesive AdvReac Mild SKIN Verified 01/08/21 22:54 IRRITATIONS Home Medications Medication Instructions Recorded Confirmed Type Saccharomyces boulardii 250 mg 250 mg PO DAILY #90 cap 06/17/19 01/08/21 Rx capsule biotin 2,500 mcg capsule 2,500 mcg PO DAILY #90 cap 06/17/19 01/08/21 Rx fexofenadine 180 mg tablet 180 mg PO DAILY #90 tab 06/17/19 01/08/21 Rx krill 1 cap PO DAILY #90 cap 06/17/19 01/08/21 Rx npr-ec1-ytt-eml-uc2-tma-astax 1,500 mg-165 mg-67.5 mg capsule hydrochlorothiazide 12.5 mg tablet 12.5 mg PO DAILY #90 tab 01/31/20 01/08/21 Rx febuxostat 40 mg tablet 40 mg PO DAILY #90 tab 06/09/20 01/08/21 Rx cholecalciferol (vitamin D3) 25 2,000 unit PO DAILY #30 cap 08/01/20 01/08/21 Rx mcg (1,000 unit) capsule clobetasol 0.05 % scalp solution 1 applic TOPICAL DAILY PRN #50 ml 08/24/20 Rx hydrocortisone-pramoxine 1 %-1 % 1 applic TOPICAL BID PRN #57 g 08/24/20 01/08/21 Rx topical cream nystatin-triamcinolone 100,000 1 applic TOPICAL BID PRN #60 gm 08/24/20 01/08/21 Rx unit/gram-0.1 % topical ointment peg 400-propylene glycol (PF) 0.4 1 drp OPHTHALMIC (EYE) QID #30 ea 08/24/20 01/08/21 Rx %-0.3 % eye drops in a dropperette zolpidem 10 mg tablet 10 mg PO HS PRN #90 tab 09/26/20 01/08/21 Rx metformin 500 mg tablet 500 mg PO BID #180 tab 11/14/20 01/08/21 Rx potassium chloride 10 mEq 10 meq PO BID #180 tab 12/22/20 01/08/21 Rx tablet,extended release acetaminophen [Tylenol Arthritis 650 - 1,300 mg PO Q12H PRN 01/02/21 01/08/21 History Pain] ciprofloxacin HCl [Cipro] 500 mg PO BID 10 Days #20 tab 01/02/21 01/08/21 Rx metronidazole [Flagyl] 500 mg PO TID #30 tab 01/02/21 01/08/21 Rx jruyubbmrjbt-ezhnoqhw-imoawk 1 tab PO DAILY 01/02/21 01/08/21 History [Centrum Silver] vit C,E-Dj-vlcxb-lutein-zeaxan 1 tab PO BID 01/02/21 01/08/21 History [PreserVision AREDS-2] Past Med/Surg History Medical History Acute diverticulitis Asthma Breast cancer dx 54 years old, mastectomy and tram flap Diverticulitis Dyslipidemia Elevated liver function tests Hepatitis probably A as a child Left hand pain Leukocytosis Type 2 diabetes mellitus Vitamin D deficiency Surgical History H/O breast reconstruction H/O sinus surgery History of colonoscopy History of dilation and curettage History of hysterectomy unilateral ovarian removal, (?R)--for a large cyst History of knee replacement bilateral History of mastectomy left breast Family History Sister Breast cancer Father Coronary heart disease Heart disease Hypertension Melanoma Mother Ovarian cancer age 93, diagnosed advanced stage Social History Smoking Status: Never smoker Second Hand Exposure: No; Hx Alcohol Use: No Hx Substance Use: No Preferred Language: German Communication Ability: Effective Maintenance Groundman Required: No Beliefs That Will Affect Care: None marital status: Current Living Situation: Spouse current occupational status: retired Other Information That Helps Us Care for You: No Feels Safe at Home: Yes Safety Concerns: Feels Safe At This Time Seatbelt Use: always Assistive Devices: None Review of Systems Review of Systems: All systems reviewed & are unremarkable except as noted in HPI & below Physical Exam Constitutional: WD/WN, vitals as above Eyes: PERRL, conjunctivae normal, anicteric sclerae Neck: trachea midline, no thyromegaly Respiratory: normal respiratory effort, lungs clear to auscultation Cardiovascular: Rate/Rhythm: regular rate and regular rhythm Heart Sounds: normal S1 and normal S2; no gallop, no murmur and no cardiac rub Vessels: normal peripheral pulses; no JVD Gastrointestinal (Abdomen): Inspection/Auscultation: abdomen normal to inspection Percussion/Palpation: + abdomen tender (LLQ, and epigastric) and normal to percussion; no guarding and + abdomen not soft Skin: no rashes, warm and dry Neurologic: PERRL, EOMI, accommodation nl, no face palsy, no dysarthria Psychiatric: Orientation: alert and oriented x 3 Results & Data Results & Data ([facility]) Vital Signs (Past 12 Hours) Vital Signs Temp Pulse Resp BP Pulse Ox 01/09/21 00:30 86 21 158/100 H 97 01/09/21 00:10 92 H 19 157/74 H 97 01/09/21 00:06 90 15 01/08/21 23:37 86 22 99 01/08/21 23:36 84 22 166/72 H 99 01/08/21 23:35 89 15 99 01/08/21 23:00 85 18 98 01/08/21 22:40 97 01/08/21 22:11 36.4 C L 96 H 18 177/105 H 98 Laboratory Results 01/09/21 01/09/21 01/09/21 Range/Units 02:58 00:30 00:30 WBC (4.8-10.8) K/uL RBC (4.2-5.4) M/uL Hgb (12.0-16.0) g/dL Hct (37-47) % MCV (80-100) fL MCH (25-34) pg MCHC (32-36) g/dL RDW Std Deviation (36.4-46.3) fL RDW Coeff of Gordon (11.5-14.5) % Plt Count (130-400) K/uL MPV (7.4-10.4) fL Immature Gran % (Auto) % Neut % (Auto) % Lymph % (Auto) % Ida % (Auto) % Eos % (Auto) % Baso % (Auto) % Neut # (Auto) (1.4-6.5) K/uL Lymph # (Auto) (1.2-3.4) K/uL Ida # (Auto) (0.11-0.59) K/uL Eos # (Auto) (0-0.5) K/uL Baso # (Auto) (0-0.2) K/uL Immature Gran # (Auto) (0.00-0.02) K/uL Sodium (136-145) mmol/L Potassium (3.5-5.1) mmol/L Chloride (98-107) mmol/L Carbon Dioxide (21-32) mmol/L Anion Gap (3-11) BUN (7-18) mg/dl Creatinine (0.6-1.2) mg/dl Est Cr Clr Drug Dosing ml/min Est GFR ( Amer) Est GFR (Non-Af Amer) BUN/Creatinine Ratio (10-20) Glucose (70-99) mg/dl POC Glucose 225 H (70-99) mg/dl Calcium (8.5-10.1) mg/dl Magnesium (1.8-2.4) mg/dl Total Bilirubin (0.2-1) mg/dl AST (15-37) U/L ALT (12-78) U/L Alkaline Phosphatase (45-117) U/L Troponin I (0-0.045) ng/ml Total Protein (6.4-8.2) gm/dl Albumin (3.4-5.0) gm/dl Globulin (2.5-4.0) gm/dl Albumin/Globulin Ratio (0.9-2) Lipase (73-393) U/L Urine Color Urine Appearance (Clear) Urine pH (4.5-7.5) Ur Specific [place] (1.000-1.030) Urine Protein (Negative) Urine Glucose (UA) (Negative) Urine Ketones (Negative) Urine Blood (Negative) Urine Nitrite (Negative) Urine Bilirubin (Negative) Urine Urobilinogen (Negative) Ur Leukocyte Esterase (Negative) Urine WBC (Auto) (0-5) /hpf Urine RBC (Auto) (0-4) /hpf U Hyaline Cast (Auto) (0-5) /lpf U Epithel Cells (Auto) (0-5) /lpf Urine Bacteria (Auto) (Negative) COVID-19 Eval Order Covid19 IDNow [facility] SARS-CoV-2, RNA, NAAT NEGATIVE (NEGATIVE) 01/08/21 01/08/21 01/08/21 Range/Units 23:40 22:44 22:43 WBC 10.87 H (4.8-10.8) K/uL RBC 4.38 (4.2-5.4) M/uL Hgb 14.1 (12.0-16.0) g/dL Hct 40.1 (37-47) % MCV 91.6 (80-100) fL MCH 32.2 (25-34) pg MCHC 35.2 (32-36) g/dL RDW Std Deviation 43.4 (36.4-46.3) fL RDW Coeff of Gordon 12.9 (11.5-14.5) % Plt Count 227 (130-400) K/uL MPV 9.8 (7.4-10.4) fL Immature Gran % (Auto) 0.3 % Neut % (Auto) 70.7 % Lymph % (Auto) 16.0 % Ida % (Auto) 9.9 % Eos % (Auto) 2.9 % Baso % (Auto) 0.2 % Neut # (Auto) 7.69 H (1.4-6.5) K/uL Lymph # (Auto) 1.74 (1.2-3.4) K/uL Ida # (Auto) 1.08 H (0.11-0.59) K/uL Eos # (Auto) 0.31 (0-0.5) K/uL Baso # (Auto) 0.02 (0-0.2) K/uL Immature Gran # (Auto) 0.03 H (0.00-0.02) K/uL Sodium 134 L (136-145) mmol/L Potassium 3.7 (3.5-5.1) mmol/L Chloride 102 (98-107) mmol/L Carbon Dioxide 24 (21-32) mmol/L Anion Gap 8.0 (3-11) BUN 16 (7-18) mg/dl Creatinine 0.92 (0.6-1.2) mg/dl Est Cr Clr Drug Dosing 51.3 ml/min Est GFR ( Amer) 69.1 Est GFR (Non-Af Amer) 59.6 BUN/Creatinine Ratio 17.6 (10-20) Glucose 234 H (70-99) mg/dl POC Glucose (70-99) mg/dl Calcium 9.8 (8.5-10.1) mg/dl Magnesium 1.9 (1.8-2.4) mg/dl Total Bilirubin 0.3 (0.2-1) mg/dl AST 32 (15-37) U/L ALT 60 (12-78) U/L Alkaline Phosphatase 68 (45-117) U/L Troponin I < 0.015 (0-0.045) ng/ml Total Protein 8.0 (6.4-8.2) gm/dl Albumin 3.6 (3.4-5.0) gm/dl Globulin 4.4 H (2.5-4.0) gm/dl Albumin/Globulin Ratio 0.8 L (0.9-2) Lipase 7433 H (73-393) U/L Urine Color Yellow Urine Appearance Clear (Clear) Urine pH 5.0 (4.5-7.5) Ur Specific [place] 1.021 (1.000-1.030) Urine Protein Negative (Negative) Urine Glucose (UA) Negative (Negative) Urine Ketones Negative (Negative) Urine Blood Negative (Negative) Urine Nitrite Negative (Negative) Urine Bilirubin Negative (Negative) Urine Urobilinogen Negative (Negative) Ur Leukocyte Esterase Trace H (Negative) Urine WBC (Auto) 1-5 (0-5) /hpf Urine RBC (Auto) 0-4 (0-4) /hpf U Hyaline Cast (Auto) 1-5 (0-5) /lpf U Epithel Cells (Auto) >30 H (0-5) /lpf Urine Bacteria (Auto) Negative (Negative) COVID-19 Eval Order SARS-CoV-2, RNA, NAAT (NEGATIVE) Medications Administered Current Inpatient Medications Miscellaneous Information (Piperacill/Tazobac Consult Active) 1 ea N/A UD PRN PRN Reason: Consult Stop: 02/07/21 23:54 Ondansetron HCl (Ondansetron Inj 2 Mg/Ml 2 Ml Vial) 4 mg IV Q6H PRN PRN Reason: Nausea Stop: 02/08/21 02:01 Supervising Physician Co-Signing Physician Notes Patient seen and examined, chart reviewed, case discussed with Dr. Hunt and I agree with his assessment and plan as documented above. Briefly, patient is a 80yo female, recent diagnosis of diverticulitis on Cipro and Flagyl at home presenting with acute pancreatitis. On exam she is afebrile, HD stable, non-toxic in appearance Skin - warm, dry, intact, no jaundice HEENT - NC/AT, PERRL, MMM, Neck supple Heart - +S1/S2 Lungs - CTA Abd - +BS, soft, tender in midepigastric area with voluntary guarding, mild tenderness in RLQ/LLQ with no rebound/guarding/peritoneal signs Ext - Warm, well perfused Labs and images reviewed, Lipase = 7433 Assessment/Plan: 80yo female with acute pancreatitis. No history of gallstones, EtOH use or prior pancreatitis. She reports she had lipids done recently and they were within normal limits. ?secondary to medications -NPO, bowel rest, IVF, anti-emetics and pain control as needed -Remainder of plan as above Resident Activity Tracking Resident Involvement: Resident Care Provided Care Provided: Adult Hospital Medicine (1) Acute pancreatitis Acute pancreatitis complication: unspecified Pancreatitis type: unspecified pancreatitis type Qualified Code(s): K85.90 - Acute pancreatitis without necrosis or infection, unspecified
[2021-01-09] MEDS ORDERED: ONDANSETRON INJ 2 MG/ML 2 ML VIAL IV PRN (02:02)
[2021-01-09] MEDS ORDERED: GLUCOSE 40% GEL 15 GM TUBE PO PRN (04:55)
[2021-01-09] MEDS ORDERED: GLUCAGON FOR INJ 1 MG VIAL SQ PRN (04:55)
[2021-01-09] MEDS ORDERED: GLUCOSE 10 TABS/TUBE PO PRN (04:55)
[2021-01-09] MEDS ORDERED: CARBOHYDRATES FOR HYPOGLYCEMIA PO PRN (04:55)
[2021-01-09] MEDS ORDERED: DEXTROSE 50% 50 ML SYRINGE IV PRN (04:55)
[2021-01-09] MEDS ORDERED: Nursing to Pharmacy Communication SCH (05:15)
[2021-01-09] MEDS: ACETAMINOPHEN 1000 MG/100 ML IV IV PRN ×2 (05:36→15:45)
[2021-01-09] MEDS: SODIUM CHLORIDE 0.9% 1000ML 1,000 ML IV SCH ×2 (05:36→10:42)
[2021-01-09] MEDS: PIPERACILLIN/TAZOBACTAM 4.5 GM in DEXTROSE 5% 100 ML IV SCH ×3 (05:36→22:12)
[2021-01-09] MEDS: INSULIN ASPART 100 UNITS/ML 3 ML PEN SC SCH ×3 (07:24→18:15)
[2021-01-09 07:25] LABS: Basophils # (auto) 0.02 K/uL (0-0.2); Basophils % (auto) 0.2 %; Eosinophils % (auto) 2.5 %; Hematocrit (blood only) 36.6 % (37-47); Hemoglobin 12.6 g/dL (12.0-16.0); Immature Granulocytes # (auto) 0.03 K/uL (0.00-0.02); Immature Granulocytes % (auto) 0.3 %; Lymphocytes # (auto) 1.89 K/uL (1.2-3.4); Lymphocytes % (auto) 15.9 %; Mean Corpuscular Hemoglobin 31.7 pg (25-34); Mean Corpuscular Hgb Conc 34.4 g/dL (32-36); Mean Platelet Volume 10.1 fL (7.4-10.4); Monocytes # (auto) 1.22 K/uL (0.11-0.59); Monocytes % (auto) 10.3 %; Neutrophils # (auto) 8.43 K/uL (1.4-6.5); Neutrophils % (auto) 70.8 %; Platelet Count 217 K/uL (130-400); RDW Standard Deviation 43.4 fL (36.4-46.3); Red Blood Count 3.98 M/uL (4.2-5.4); White Blood Count 11.89 K/uL (4.8-10.8)
--- NOTE | 2021-01-09 07:28 | CT Scan Report ---
CT SCAN OF THE ABDOMEN AND PELVIS WITH IV CONTRAST CLINICAL HISTORY: Generalized abdominal pain. COMPARISON STUDY: Abdominal CT dated 01/02/2021. TECHNIQUE: Following the IV administration of 94 cc of Optiray 320, CT scan of the abdomen and pelvi s is performed from the lung bases to the proximal femora. Images are reviewed in the axial, sagittal , and coronal planes. IV contrast was administered without complication. A dose lowering technique wa s utilized adhering to the principles of ALARA. CT DOSE: 1055.53 mGy.cm FINDINGS: Lung bases: The heart is normal in size and without pericardial effusion. The coronary arteries are d ensely calcified. There is a small hiatal hernia. The lung bases are clear noting bibasilar scarring/ atelectasis. A small fat-containing Bochdalek hernia is seen at the right lung base. Liver: The contrast-enhanced liver is enlarged, measuring over 18 cm in length. The liver demonstrate s diffusely diminished attenuation consistent with hepatic steatosis. There is no intrahepatic biliar y ductal dilatation. The hepatic veins and portal veins are patent. Gallbladder: Unremarkable. Spleen: Normal in size and attenuation. Pancreas: The pancreas is mildly edematous, and there is peripancreatic stranding and fluid. Findings are consistent with acute pancreatitis. The pancreatic duct is normal in caliber. The gland enhances homogeneously. No organized peripancreatic fluid collection is identified. The splenic vein is paten t. Adrenal glands: Unremarkable. Kidneys: The contrast enhanced kidneys demonstrate cortical atrophy and are without hydronephrosis. T he kidneys enhance symmetrically. Scattered subcentimeter cortical hypodensities likely represent cys ts but are too small for definitive characterization. Abdominal vasculature: The abdominal aorta is normal in course and caliber noting advanced atheroscle rotic calcification. Bowel: There is mild to moderate colonic diverticulosis. There is wall thickening with pericolonic in flammation and trace fluid involving the distal descending colon consistent with acute diverticulitis . This is best seen on image #285. No organized fluid collection is seen to indicate abscess. There i s no bowel obstruction. A duodenal diverticulum is noted. The appendix is not visualized. Peritoneum: There is no intraperitoneal free air or abdominal ascites. Lymphadenopathy: None. Pelvic viscera: The bladder is decompressed and not well evaluated. The uterus is surgically absent. No adnexal lesion is seen. Skeletal structures: The skeletal structures are osteopenic. There is moderate to advanced lumbosacra l spondylosis. Sclerotic change is noted in the sacroiliac joints. No lytic or blastic lesions are se en. IMPRESSION: 1. Findings are consistent with acute pancreatitis. This is new from 01/02/2021. 2. The pancreas enhances homogeneously and no peripancreatic fluid collection is identified. 3. Findings are consistent with acute diverticulitis of the distal descending colon. This has improve d as compared to 01/02/2021. 4. No intraperitoneal free air is identified and no fluid collection is seen to suggest abscess. 5. Hepatomegaly and hepatic steatosis. 6. Additional findings as above. ACT 112: Negative or not required by law. Electronically signed by: Pierce Almendarez M.D. 01/09/2021 7:26 AM
[2021-01-09] MEDS ORDERED: INSULIN ASPART 100 UNITS/ML 3 ML PEN SC SCH (07:30)
[2021-01-09] MEDS ORDERED: MoRPHine SULFATE 2 MG/ML CARP IV PRN (07:53)
[2021-01-09 07:57] LABS: Albumin Level 3.2 gm/dl (3.4-5.0); BUN Creatinine Ratio 13.8 (10-20); Calcium 9.2 mg/dl (8.5-10.1); Creatinine Clr Calc Pharmacy 50.8 ml/min; Est GFR (African American) 68.2; Est GFR (Non-African American) 58.9; Magnesium 1.7 mg/dl (1.8-2.4); Potassium 3.5 mmol/L (3.5-5.1)
[2021-01-09 08:00] LABS: Albumin Globulin Ratio 0.8 (0.9-2); Bilirubin,Total 0.5 mg/dl (0.2-1); Globulin 3.8 gm/dl (2.5-4.0)
[2021-01-09] MEDS ORDERED: OPTIRAY 320 100ml IV ONE (08:19)
[2021-01-09] MEDS: ENOXAPARIN INJ 40 MG/0.4 ML SYR SQ SCH (08:37)
[2021-01-09] MEDS: FAMOTIDINE 20 MG in SYRINGE 3 ML IV SCH ×2 (08:37→20:29)
--- NOTE | 2021-01-09 08:40 | CT Scan Report ---
CT SCAN OF THE PARANASAL SINUSES WITH IV CONTRAST CLINICAL HISTORY: Chronic sinusitis. COMPARISON STUDY: CT of the paranasal sinuses dated 11/12/2017. TECHNIQUE: High-resolution CT scan of the paranasal sinuses is performed following the IV administra tion of 94 cc of Optiray 320. Images are reviewed in the axial, sagittal, and coronal planes. IV cont rast was administered without complication. A dose lowering technique was utilized adhering to the pr inciples of ALARA. CT DOSE: 492.20 mGy.cm FINDINGS: Postoperative change: There is postoperative change from left maxillary antrectomy with antrostomy fo rmation. Maxillary antra: Clear on the right. There is mild mucosal thickening within the left maxillary antru m. Thickening and sclerosis of the sinus wall indicates chronicity. Anterior ethmoid sinuses: Trace mucosal thickening is seen bilaterally. Posterior ethmoid sinuses: Trace mucosal thickening is seen bilaterally. Sphenoid sinuses: Clear. Frontal sinuses: Clear. Ostiomeatal complexes: The right ostiomeatal complex and the left antrostomy are patent. Frontoethmoidal and sphenoethmoidal recesses: Patent bilaterally. There is mild narrowing of the sphe noethmoidal recesses by mucosal thickening. Carotid arteries: The carotid arteries are protuberant but covered noting bilateral septal attachment s. Ethmoid roofs: The ethmoid roofs are symmetric. Nasal turbinates: Normal in appearance. Nasal septum: There is mild leftward deviation of the bony nasal septum. Optic nerves: Covered. Orbits: The bony orbits are intact. Orbital contents are normal in appearance. Calvarium: The imaged calvarium is normal in appearance Mastoid air cells: Well pneumatized. Brain parenchyma: Partially visualized brain parenchyma is within normal limits. IMPRESSION: Mild chronic left maxillary sinus disease and postoperative change as above. ACT 112: Negative or not required by law. Electronically signed by: Pierce Almendarez M.D. 01/09/2021 8:38 AM
[2021-01-09 09:05] LABS: Chol HDL Ratio 3; Cholesterol 118 mg/dl (0-200); HDL Cholesterol 46 mg/dl; LDL Cholesterol Calculated 60 mg/dl; Triglycerides 59 mg/dl (0-150); VLDL Cholesterol 12 mg/dl
--- NOTE | 2021-01-09 14:05 | Hospitalist Progress Note ---
Date of Service January 09, 2021 Assessment & Plan (1) Acute pancreatitis: Currently n.p.o. Continue IV fluids. Antiemetics and parenteral narcotics as needed for pain control. Check triglyceride level. Will need further gallbladder evaluation at some point. Discontinued Cipro and Flagyl as possible causes of the pancreatitis. Serial lab studies Present on Admission?: Yes (2) Diverticulitis: Recently discharged on oral Cipro and Flagyl for diverticulitis. Oral antibiotics discontinued as a possible cause of the pancreatitis. She is now on parenteral Zosyn. No current diverticulitis symptoms Present on Admission?: Yes (3) Allergic fungal sinusitis (AFS): Known fungal sinusitis. Facial sinus CT scan while hospitalized Present on Admission?: Yes (4) Type 2 diabetes mellitus: Currently n.p.o. Sliding scale coverage for now. DVT prophylaxis: Lovenox subcu Disposition: Eventual discharge to home Present on Admission?: Yes Admission and Anticipated Discharge Date Admission Date: January 09, 2021 Subjective Alert and oriented. No significant distress. She is not certain how she got the pancreatitis. This is her first episode. She is a nondrinker. She was taking Cipro and Flagyl for recent diverticulitis which may have contributed. Underlying gallbladder disease needs to be ruled out. She does not appear to have penetrating peptic ulcer disease due to lack of symptoms. Lipase on admission 7433. Triglyceride level pending. She has some chest discomfort but no acute EKG changes and negative troponin x2. Review of Systems Review of Systems: All systems reviewed & are unremarkable except as noted in HPI & below Physical Exam Physical Exam: General-alert and oriented x3, no fevers, no chills. Obese HEENT-head atraumatic and normocephalic, TMs intact bilaterally, pupils equal and reactive to light, extraocular muscles intact Neck-no lymphadenopathy or thyromegaly, trachea midline Chest-clear to auscultation percussion. No rales wheezing or rhonchi Cardiac-regular rate and rhythm, normal S1 and S2, no murmurs Abdomen-normal bowel sounds, no hepatosplenomegaly. Mild epigastric area tenderness. No rebound or guarding Extremities-no cyanosis, clubbing, or edema Neuro-cranial nerves II through XII intact, motor and sensory function within normal limits, strength symmetrical , no focal deficits Psych-normal affect, normal mood Results & Data Results & Data ([place]) Vital Signs (Past 12 Hours) Vital Signs Temp Pulse Resp BP Pulse Ox 01/09/21 07:33 37.0 C 57 L 16 150/79 H 96 01/09/21 02:02 36.7 C 94 H 17 160/92 H 97 Laboratory Results 01/09/21 06:58 PG Care Time/CCT Total # of Minutes Spent Total Time Spent with Patient: Total time spent is greater than 50% in coordination of care (as documented) at patient's floor/unit and/or counseling p atient: Coding Level of Care Code 59126 Subseq Hosp Care Lvl 3 Diagnoses Acute pancreatitis K85.90 Acute pancreatitis complication: unspecified Pancreatitis type: unspecified pancreatitis type Diverticulitis K57.92 Allergic fungal sinusitis (AFS) J30.89; B49 Type 2 diabetes mellitus E11.9 (1) Acute pancreatitis Acute pancreatitis complication: unspecified Pancreatitis type: unspecified pancreatitis type Qualified Code(s): K85.90 - Acute pancreatitis without necrosis or infection, unspecified
--- NOTE | 2021-01-09 19:00 | Billing Data ---
Date of Service January 09, 2021 Coding Level of Care Code 84826 OBS Care - Level 3
[2021-01-10] MEDS: INSULIN ASPART 100 UNITS/ML 3 ML PEN SC SCH ×4 (00:41→18:16)
--- NOTE | 2021-01-10 05:43 | Electrocardiogram Report ---
Test Reason : Blood Pressure : / mmHG Vent. Rate : 085 BPM Atrial Rate : 085 BPM P-R Int : 224 ms QRS Dur : 088 ms QT Int : 382 ms P-R-T Axes : 037 -09 023 degrees QTc Int : 454 ms Poor data quality, interpretation may be adversely affected Sinus rhythm with 1st degree A-V block with frequent Premature ventricular complexes Otherwise normal ECG When compared with ECG of 02-JAN-2021 19:50, Premature ventricular complexes are now Present Confirmed by Maldonado Dimas ([id number]) on 01/10/2021 5:43:20 AM Referred By: REFERRED SELF Confirmed By:Maldonado Dimas
[2021-01-10] MEDS: PIPERACILLIN/TAZOBACTAM 4.5 GM in DEXTROSE 5% 100 ML IV SCH ×3 (06:18→21:32)
[2021-01-10 06:19] LABS: Basophils # (auto) 0.02 K/uL (0-0.2); Basophils % (auto) 0.2 %; Eosinophils # (auto) 0.16 K/uL (0-0.5); Eosinophils % (auto) 1.4 %; Hemoglobin 13.1 g/dL (12.0-16.0); Immature Granulocytes # (auto) 0.04 K/uL (0.00-0.02); Immature Granulocytes % (auto) 0.3 %; Lymphocytes % (auto) 14.6 %; Mean Corpuscular Hemoglobin 32.2 pg (25-34); Mean Corpuscular Hgb Conc 35.4 g/dL (32-36); Mean Corpuscular Volume 90.9 fL (80-100); Mean Platelet Volume 9.8 fL (7.4-10.4); Monocytes # (auto) 1.26 K/uL (0.11-0.59); Monocytes % (auto) 10.9 %; Neutrophils # (auto) 8.43 K/uL (1.4-6.5); Neutrophils % (auto) 72.6 %; Platelet Count 230 K/uL (130-400); RDW Coefficient of Variation 13.1 % (11.5-14.5); RDW Standard Deviation 43.4 fL (36.4-46.3); Red Blood Count 4.07 M/uL (4.2-5.4); White Blood Count 11.61 K/uL (4.8-10.8)
--- NOTE | 2021-01-10 06:20 | Electrocardiogram Report ---
Test Reason : Blood Pressure : / mmHG Vent. Rate : 081 BPM Atrial Rate : 081 BPM P-R Int : 204 ms QRS Dur : 086 ms QT Int : 390 ms P-R-T Axes : 014 -15 022 degrees QTc Int : 453 ms Sinus rhythm When compared with ECG of 08-JAN-2021 23:09, Premature ventricular complexes are no longer Present Confirmed by Maldonado Dimas ([id number]) on 01/10/2021 6:20:28 AM Referred By: REFERRED SELF Confirmed By:Maldonado Dimas
[2021-01-10 06:49] LABS: Albumin Level 3.1 gm/dl (3.4-5.0); BUN Creatinine Ratio 11.3 (10-20); Calcium 9.1 mg/dl (8.5-10.1); Creatinine Clr Calc Pharmacy 55.6 ml/min; Est GFR (African American) 76.1; Est GFR (Non-African American) 65.6; Potassium 3.3 mmol/L (3.5-5.1)
[2021-01-10 06:51] LABS: Albumin Globulin Ratio 0.8 (0.9-2); Bilirubin,Total 0.4 mg/dl (0.2-1); Globulin 4.1 gm/dl (2.5-4.0); Phosphorus 2.5 mg/dl (2.5-4.9); Total Protein 7.2 gm/dl (6.4-8.2)
[2021-01-10] MEDS: FAMOTIDINE 20 MG in SYRINGE 3 ML IV SCH ×2 (09:11→21:32)
[2021-01-10] MEDS: ENOXAPARIN INJ 40 MG/0.4 ML SYR SQ SCH (09:11)
[2021-01-10] MEDS: NSS + 20MEQ KCL 20 MEQ/1,000 ML BAG IV SCH ×2 (10:55→18:14)
--- NOTE | 2021-01-10 14:14 | Hospitalist Progress Note ---
Date of Service January 10, 2021 Assessment & Plan (1) Acute pancreatitis: Improving. Lipase is downtrending. Currently n.p.o. Continue IV fluids. Antiemetics and parenteral narcotics as needed for pain control. Triglyceride level is normal. Will need further gallbladder evaluation at some point. Discontinued Cipro and Flagyl on admission as possible causes of the pancreatitis. Serial lab studies (2) Diverticulitis: Recently discharged on oral Cipro and Flagyl for diverticulitis. Oral antibiotics discontinued as a possible cause of the pancreatitis. She is now on parenteral Zosyn. No current diverticulitis symptoms (3) Type 2 diabetes mellitus: Currently n.p.o. Sliding scale coverage for now. DVT prophylaxis: Lovenox subcu Disposition: Eventual discharge to home Admission and Anticipated Discharge Date Admission Date: January 09, 2021 Subjective Feeling better overall but not feeling as if she is ready to eat. Lipase has decreased considerably down to 916. Triglyceride level is normal. Facial sinus CT scan results noted Review of Systems Review of Systems: All systems reviewed & are unremarkable except as noted in HPI & below Physical Exam Physical Exam: General-alert and oriented x3, no fevers, no chills. Obese HEENT-head atraumatic and normocephalic, TMs intact bilaterally, pupils equal and reactive to light, extraocular muscles intact Neck-no lymphadenopathy or thyromegaly, trachea midline Chest-clear to auscultation percussion. No rales wheezing or rhonchi Cardiac-regular rate and rhythm, normal S1 and S2, no murmurs Abdomen-normal bowel sounds, no hepatosplenomegaly. Mildly distended. Bowel sounds active. Mild epigastric tenderness Extremities-no cyanosis, clubbing, or edema Neuro-cranial nerves II through XII intact, motor and sensory function within normal limits, strength symmetrical , no focal deficits Psych-normal affect, normal mood Results & Data Results & Data ([facility]) Vital Signs (Past 12 Hours) Vital Signs Temp Pulse Resp BP Pulse Ox 01/10/21 07:36 37.1 C 87 16 156/83 H 96 Laboratory Results 01/10/21 05:59 01/10/21 05:58 PG Care Time/CCT Total # of Minutes Spent Total Time Spent with Patient: Total time spent is greater than 50% in coordination of care (as documented) at patient's floor/unit and/or counseling patient: Coding Level of Care Code 39684 Subseq Hosp Care Lvl 3 Diagnoses Acute pancreatitis K85.90 Acute pancreatitis complication: unspecified Pancreatitis type: unspecified pancreatitis type Diverticulitis K57.92 Type 2 diabetes mellitus E11.9 (1) Acute pancreatitis Acute pancreatitis complication: unspecified Pancreatitis type: unspecified pancreatitis type Qualified Code(s): K85.90 - Acute pancreatitis without necrosis or infection, unspecified
[2021-01-11] MEDS: INSULIN ASPART 100 UNITS/ML 3 ML PEN SC SCH ×5 (00:11→21:09)
[2021-01-11] MEDS: NSS + 20MEQ KCL 20 MEQ/1,000 ML BAG IV SCH ×3 (00:47→17:30)
[2021-01-11] MEDS: PIPERACILLIN/TAZOBACTAM 4.5 GM in DEXTROSE 5% 100 ML IV SCH ×3 (05:22→21:07)
[2021-01-11 08:17] LABS: Basophils # (auto) 0.02 K/uL (0-0.2); Basophils % (auto) 0.3 %; Hematocrit (blood only) 34.4 % (37-47); Hemoglobin 12.4 g/dL (12.0-16.0); Immature Granulocytes # (auto) 0.04 K/uL (0.00-0.02); Immature Granulocytes % (auto) 0.5 %; Mean Corpuscular Hemoglobin 33.2 pg (25-34); Mean Platelet Volume 9.4 fL (7.4-10.4); Monocytes # (auto) 0.75 K/uL (0.11-0.59); Monocytes % (auto) 9.9 %; Neutrophils # (auto) 4.58 K/uL (1.4-6.5); Neutrophils % (auto) 60.3 %; Platelet Count 205 K/uL (130-400); RDW Coefficient of Variation 13.3 % (11.5-14.5); RDW Standard Deviation 44.7 fL (36.4-46.3); Red Blood Count 3.74 M/uL (4.2-5.4); White Blood Count 7.59 K/uL (4.8-10.8)
[2021-01-11] MEDS: ENOXAPARIN INJ 40 MG/0.4 ML SYR SQ SCH (08:42)
[2021-01-11] MEDS: FAMOTIDINE 20 MG in SYRINGE 3 ML IV SCH ×2 (08:42→21:02)
[2021-01-11 08:55] LABS: Albumin Globulin Ratio 0.7 (0.9-2); Albumin Level 2.7 gm/dl (3.4-5.0); BUN Creatinine Ratio 14.9 (10-20); Bilirubin,Total 0.4 mg/dl (0.2-1); Calcium 8.8 mg/dl (8.5-10.1); Creatinine Clr Calc Pharmacy 60.5 ml/min; Est GFR (African American) 84.4; Est GFR (Non-African American) 72.8; Globulin 4.1 gm/dl (2.5-4.0); Total Protein 6.8 gm/dl (6.4-8.2)
[2021-01-11] MEDS ORDERED: Nursing to Pharmacy Communication SCH (16:45)
--- NOTE | 2021-01-11 22:29 | Hospitalist Progress Note ---
Date of Service January 11, 2021 Assessment & Plan (1) Acute pancreatitis: Improving. Lipase is downtrending. Advance diet. Continue IV fluids. Antiemetics and parenteral narcotics as needed for pain control. Triglyceride level is normal. Will need further gallbladder evaluation at some point. Discontinued Cipro and Flagyl on admission as possible causes of the pancreatitis. Serial lab studies Lipase is improving (2) Diverticulitis: Recently discharged on oral Cipro and Flagyl for diverticulitis. Oral antibiotics discontinued as a possible cause of the pancreatitis. She is now on parenteral Zosyn. No current diverticulitis symptoms may consider switching to PO augmentin at discharge (3) Type 2 diabetes mellitus: Currently n.p.o. Sliding scale coverage for now. DVT prophylaxis: Lovenox subcu Admission and Anticipated Discharge Date Admission Date: January 10, 2021 Subjective Patient reports feeling well. She has no new complaints. Review of Systems Review of Systems: All systems reviewed & are unremarkable except as noted in HPI & below Physical Exam Physical Exam: General-alert and oriented x3, no fevers, no chills. Obese HEENT-head atraumatic and normocephalic, TMs intact bilaterally, pupils equal and reactive to light, extraocular muscles intact Neck-no lymphadenopathy or thyromegaly, trachea midline Chest-clear to auscultation percussion. No rales wheezing or rhonchi Cardiac-regular rate and rhythm, normal S1 and S2, no murmurs Abdomen-normal bowel sounds, no hepatosplenomegaly. Mildly distended. Bowel sounds active. Mild epigastric tenderness Extremities-no cyanosis, clubbing, or edema Neuro-cranial nerves II through XII intact, motor and sensory function within normal limits, strength symmetrical , no focal deficits Psych-normal affect, normal mood Results & Data Results & Data ([facility]) Vital Signs (Past 12 Hours) Vital Signs Temp Pulse Resp BP Pulse Ox 01/11/21 21:12 37.0 C 67 14 152/76 H 98 01/11/21 15:10 37.0 C 58 L 20 151/72 H 95 PG Care Time/CCT Total # of Minutes Spent Total Time Spent with Patient: Total time spent is greater than 50% in coordination of care (as documented) at patient's floor/unit and/or counseling patient: Coding Level of Care Code 37630 Subseq Hosp Care Lvl 3 Diagnoses Acute pancreatitis K85.90 Acute pancreatitis complication: unspecified Pancreatitis type: unspecified pancreatitis type Diverticulitis K57.92 Type 2 diabetes mellitus E11.9 Time Spent (min) 35 (1) Acute pancreatitis Acute pancreatitis complication: unspecified Pancreatitis type: unspecified pancreatitis type Qualified Code(s): K85.90 - Acute pancreatitis without necrosis or infection, unspecified
[2021-01-12] MEDS: NSS + 20MEQ KCL 20 MEQ/1,000 ML BAG IV SCH ×3 (00:23→07:23)
[2021-01-12] MEDS: PIPERACILLIN/TAZOBACTAM 4.5 GM in DEXTROSE 5% 100 ML IV SCH ×2 (06:04→13:45)
[2021-01-12 06:27] LABS: Basophils # (auto) 0.02 K/uL (0-0.2); Basophils % (auto) 0.3 %; Eosinophils # (auto) 0.29 K/uL (0-0.5); Eosinophils % (auto) 4.5 %; Hematocrit (blood only) 33.9 % (37-47); Hemoglobin 11.6 g/dL (12.0-16.0); Immature Granulocytes # (auto) 0.06 K/uL (0.00-0.02); Immature Granulocytes % (auto) 0.9 %; Lymphocytes % (auto) 29.8 %; Mean Corpuscular Hemoglobin 31.5 pg (25-34); Mean Corpuscular Hgb Conc 34.2 g/dL (32-36); Mean Corpuscular Volume 92.1 fL (80-100); Monocytes # (auto) 0.67 K/uL (0.11-0.59); Monocytes % (auto) 10.5 %; Neutrophils # (auto) 3.44 K/uL (1.4-6.5); Platelet Count 216 K/uL (130-400); RDW Coefficient of Variation 13.2 % (11.5-14.5); RDW Standard Deviation 44.4 fL (36.4-46.3); Red Blood Count 3.68 M/uL (4.2-5.4); White Blood Count 6.38 K/uL (4.8-10.8)
[2021-01-12 06:54] LABS: Albumin Level 2.7 gm/dl (3.4-5.0); BUN Creatinine Ratio 15.6 (10-20); Calcium 8.8 mg/dl (8.5-10.1); Creatinine Clr Calc Pharmacy 66.5 ml/min; Est GFR (African American) 94.6; Est GFR (Non-African American) 81.6; Potassium 3.6 mmol/L (3.5-5.1)
[2021-01-12 06:57] LABS: Albumin Globulin Ratio 0.6 (0.9-2); Bilirubin,Total 0.3 mg/dl (0.2-1); Globulin 4.2 gm/dl (2.5-4.0); Total Protein 6.9 gm/dl (6.4-8.2)
[2021-01-12] MEDS: INSULIN ASPART 100 UNITS/ML 3 ML PEN SC SCH ×3 (08:37→17:36)
[2021-01-12] MEDS: ENOXAPARIN INJ 40 MG/0.4 ML SYR SQ SCH (09:50)
[2021-01-12] MEDS: FAMOTIDINE 20 MG in SYRINGE 3 ML IV SCH (09:50)
--- NOTE | 2021-01-18 20:41 | Discharge Summary ---
Date of Service January 12, 2021 Admission HPI Per Admitting Provider Teresa Hays is a 80-year-old female with past medical history significant for type 2 diabetes, hypertriglyceridemia, recent diverticulitis, chronic sinusitis/allergic fungal sinus infection; presented to the ER earlier today for concerns of returning abdominal pain over the last 2 days with inability to tolerate food or water. Of note patient was recently in the emergency department approximately 1 week ago, at that time she was having lower abdominal pain and had a CT scan that demonstrated concerns for diverticulitis, she was subsequently stabilized and discharged home on Cipro/Flagyl to be taken over the next 10 days. Over the following 5 days following this ER visit, patient continued to have improvement in her left lower quadrant pain; however over the last 2 days patient noticed some upper abdominal discomfort and decreasing ability to tolerate food and water. Prior to presentation patient had persistent feelings of nausea/vomiting, and admits to not taking some of her medications but believes she was taking the antibiotics over the last 2 days. Still has some residual left lower abdomen pain however she feels like this is greatly improved over the last week, and the vast majority of her the discomfort that she is feeling at this time is around her upper stomach. Has noticed that over the last couple days has had difficulty with bowel movements, but initially attributed this that she was unable to eat or drink much that this would continue to get better. Otherwise generally feeling well, besides feeling disappointed as she was supposed to have her CT ever sinuses on 01/09 in preparation for surgery with ENT and correction of her chronic sinusitis. Principal Diagnosis acute pancreatitis Discharge Exam General-alert and oriented x3, no fevers, no chills. Obese HEENT-head atraumatic and normocephalic, TMs intact bilaterally, pupils equal and reactive to light, extraocular muscles intact Neck-no lymphadenopathy or thyromegaly, trachea midline Chest-clear to auscultation percussion. No rales wheezing or rhonchi Cardiac-regular rate and rhythm, normal S1 and S2, no murmurs Abdomen-normal bowel sounds, no hepatosplenomegaly. Mildly distended. Bowel sounds active. Mild epigastric tenderness Extremities-no cyanosis, clubbing, or edema Neuro-cranial nerves II through XII intact, motor and sensory function within normal limits, strength symmetrical , no focal deficits Psych-normal affect, normal mood Discharge Data Allergies Allergy/AdvReac Type Severity Reaction Status Date / Time cefuroxime Allergy Severe THROAT Verified 01/08/21 22:54 CLOSES/TOUNGE SWELLS clotrimazole [From Lotrimin] Allergy Unknown Unknown Verified 01/08/21 22:54 lactose AdvReac Intermediate GI SYMPTOMS Verified 01/08/21 22:54 adhesive AdvReac Mild SKIN Verified 01/08/21 22:54 IRRITATIONS Consultations 01/08/21 23:57 ED Decision to Admit Stat Ordered Studies 01/08/21 22:31 CT abd pelvis IV con only Urgent 01/09/21 05:04 CT sinus w con Routine Hospital Course (1) Acute pancreatitis: Patient was NPO. Lipase was elevated but improved. Given how metronidazol can cause Pancreatitis, this will be held. will defer further galbladder eval to PCP if furher imaging is required. CT scan was also normal except for signsof pancreatitis and diverticulitis. however LFTs were normal Patient tolerating diet, now agreeable for discharge. Lipase is improving (2) Diverticulitis: Recently discharged on oral Cipro and Flagyl for diverticulitis. Oral antibiotics discontinued as a possible cause of the pancreatitis. She is now on parenteral Zosyn. No current diverticulitis symptoms Switched to PO augmentin at discharge (3) Type 2 diabetes mellitus: resume home regimen Total Time Total Time Spent Total Time Spent (In Minutes): 32 Discharge Plan Discharge Items Patient Disposition: Home - Self-Care Reason For Visit: PANCREATITIS Discharge Diagnosis: Pancreatitis Condition on Discharge: Fair Activity: Resume your previous activity Non-emergency contact: Primary Care Provider Call non-emergency contact if: you have any medication questions Follow-up/Referrals: Pierce Javed MD [Primary Care Provider] - (PATIENT IS REQUESTING TO MAKE HER OWN F/U APPT WITH PCP) Diet: Carb Consistent or DM2 Addtl Attending Provider Instructions: Will recommend that you slowly add low-fiber foods. Examples of low-fiber foods include: Canned or cooked fruits without skin or seeds Canned or cooked vegetables such as green beans, carrots and potatoes (without the skin) Eggs, fish and poultry Refined white bread Fruit and vegetable juice with no pulp Low-fiber cereals Milk, yogurt and cheese White rice, pasta and noodles Pending Studies at Discharge: No Stand-Alone Forms: My [facility], Smoking Cessation Medications and DC Order Prescriptions: Continued hydrochlorothiazide 12.5 mg tablet 12.5 mg PO DAILY Qty: 90 RF: 3 febuxostat 40 mg tablet 40 mg PO DAILY Qty: 90 RF: 3 potassium chloride 10 mEq tablet extended release 10 meq PO BID Qty: 180 RF: 3 Systane (PF) 0.4-0.3 % dropperette 1 drp ophthalmic (eye) QID Qty: 30 RF: 0 clobetasol 0.05 % solution 1 applic topical DAILY PRN (Reason: itching) Qty: 50 RF: 6 nystatin-triamcinolone 100,000-0.1 unit/gram-% ointment 1 applic topical BID PRN (Reason: skin irritation) Qty: 60 RF: 3 Pramosone 1-1 % cream 1 applic topical BID PRN (Reason: skin irritation) Qty: 57 RF: 5 zolpidem 10 mg tablet 10 mg PO HS PRN (Reason: sleep) Qty: 90 RF: 1 metformin 500 mg tablet 500 mg PO BID Qty: 180 RF: 3 biotin 2,500 mcg capsule 2,500 mcg PO DAILY Qty: 90 RF: 3 fexofenadine 180 mg tablet 180 mg PO DAILY Qty: 90 RF: 3 Krill Oil ([place] 3 and 6) 1,500-165-67.5 mg capsule 1 cap PO DAILY Qty: 90 RF: 3 Saccharomyces boulardii 250 mg capsule 250 mg PO DAILY Qty: 90 RF: 3 cholecalciferol (vitamin D3) [Vitamin D3] 25 mcg (1,000 unit) capsule 2,000 unit PO DAILY Qty: 30 RF: 0 acetaminophen [Tylenol Arthritis Pain] 650 mg Tablet Extended Release 650 - 1,300 mg PO Q12H PRN (Reason: Pain) RF: 0 ogalkhcylraz-lvoctvzj-mdjhtl Tablet 1 tab PO DAILY RF: 0 PreserVision AREDS-2 250-90-40-1 mg Capsule 1 tab PO BID RF: 0 Discontinued ciprofloxacin HCl [Cipro] 500 mg tablet 500 mg PO BID 10 Days Qty: 20 RF: 0 metronidazole [Flagyl] 500 mg tablet 500 mg PO TID Qty: 30 RF: 0 Discharge Orders: Discharge Order (Routine); Ordered 01/12/21 Ordered By: Jason A Saborio Krames/Other Patient Handouts: Low-Fiber Diet, Amoxicillin Clavulanic Acid tablets Admission Data Admit Date/Time: 01/10/21 15:43 Attending Provider: Jason Mcallister Admit Provider: Tony Spain Primary Care Provider: Pierce Javed Other Interventions: Discharge Summary Assessment (RN) Last Done: 01/12/21 17:42 Coding Level of Care Code D/C Day Management >30 mins Diagnoses Acute pancreatitis K85.90 Acute pancreatitis complication: unspecified Pancreatitis type: unspecified pancreatitis type Diverticulitis K57.92 Type 2 diabetes mellitus E11.9
== END 2021-01-12 18:48 | disposition home or self-care (01) | DRG 439 ==
LOC: ED 22:09 → 3N 22:09 → SUATTDRO 01-09 00:05 → 3N 01-09 01:39 → SUATTDRO 01-10 15:43